=== PATIENT | male | born 1950 | race Caucasian/White ===

== ENCOUNTER 2023-05-26 13:48 | Inpatient (IN) | payer OTHER, SELFPAY ==
[2023-05-26] VITALS (7 sets, daily range): BP systolic 111–143; BP diastolic 85–105; BMI 32.6; BMI 31.6
--- NOTE | 2023-05-26 10:01 | ED.GENMED ---
History of Present Illness
<Katie Davis PA-C - Last Filed: 05/26/23 12:58>
General
Chief Complaint: Breathing Problem
Source: patient
Exam Limitations: none
Time Seen by Provider: 05/26/23 10:00
Nursing documentation reviewed up to this point in time: agreed with
Travel History
Have you had any contact with someone who has COVID-19?: No
Do you have any symptoms of coronavirus? Fever > 100 degrees, chills, cough, shortness of breath, sore throat, loss of taste or smell, muscle aches, or headache?: Yes
Symptoms:: cough
History of Present Illness
History of Present Illness:
73-year-old male with a past medical history of hypothyroidism, DVT, PEs, presenting to emergency department today with shortness of breath, coughing, and body aches for the past week. Patient reports that he was initially seen by urgent care where
he was diagnosed with pneumonia and was given Zithromax and Augmentin to go home with. Patient only took the Augmentin because he reports that he is allergic to azithromycin. He was given a Medrol Dosepak as well. Patient denies any history of
COPD but does report that he requires oxygen at night. Patient denies any history of sleep apnea. Patient states that since starting antibiotics and steroids, he is progressively gotten worse, become more short of breath, having more wheezing, and
more fatigue. Patient also has some mild left-sided chest pain. Patient denies fevers or chills at home, dizziness, lightheadedness.
Past History
<Katie Davis PA-C - Last Filed: 05/26/23 12:58>
Past History
ED Past Medical History: Hypothyroidism, Psychiatric (Depression, chronic anxiety) and Other (History of peripheral vascular disease, mitral valve prolapse, DVT to the right leg, ileus, abdominal pain, urinary tract infection, cellulitis)
ED Past Surgical History: Other (vascular surgery to the right leg for poor circulation, cervical spine fusion, exploratory surgery of the abdomen for pain and abdominal enlargement, Green field filter)
Patient has exhibited threatening behavior?: No
Social History
Tobacco: Non-smoker
Alcohol: None
Personal: Single
Living: other ([facility])
Employment: Not employed
Family History
Family History: Other (Noncontributory)
Review of Systems
<Katie Davis PA-C - Last Filed: 05/26/23 12:58>
Review of Systems
All Other Systems: ROS reviewed and negative except as documented in HPI and ROS
Phy Exam
<Katie Davis PA-C - Last Filed: 05/26/23 12:58>
Physical Exam
Physical Exam:
Vitals: Patient is afebrile
General: Patient appears ill, however no acute distress
HEENT: Head is normocephalic atraumatic. Ears�bilateral TMs are clear, no erythema. Eyes�no scleral injection, no exudates. EOMs intact, pupils equal and round, reactive to light. Nose�nares are patent bilaterally. Throat�no pharyngeal
erythema, no tonsillar hypertrophy. No cervical lymphadenopathy.
Skin: Warm and dry, no rashes or lesions
Cardiac: Patient is tachycardic, however regular rate and rhythm, no murmurs
Pulmonary: Patient is tachypneic, patient has diffuse wheezing on exam, audible without stethoscope.
Abdomen: No abdominal tenderness
Neuro: Patient is awake and alert, no focal neurologic deficit
Scores
<Katie Davis PA-C - Last Filed: 05/26/23 12:58>
Heart Failure Risk
Heart Failure Risk Score: Not Applicable
Course
<Katie Davis PA-C - Last Filed: 05/26/23 12:58>
Orders/Labs/Results
Orders:
Orders
05/26/23 09:54
Electrocardiogram (*1) Urgent
Reason for Study: Chest Pain
EKG- Treatment ONCE
05/26/23 10:21
COVID-19 Antigen Urgent
Source: Nasal Swab
Complete Blood Count/With Diff Urgent
Comprehensive Metabolic Panel Urgent
Lactic Acid Q4H
Comment: ON ICE, CANCEL 2ND ORDER IF FIRST LACTIC ACID LEVEL <2
Troponin I Urgent
INF RAPID [Influenza A+B Rapid Molecular] Urgent
JAMES Source: Nasal Swab
Specimen Description:
05/26/23 10:22
Blood Culture Q30M
JAMES Source: Blood/Venous
Specimen Description:
Comment: FROM 2 SEPARATE SITES
05/26/23 10:36
Azithromycin 500 mg/250 ml [Zithromax Infusion] 500 mg in 250 ml IV NOW
CefTRIAXone [Rocephin] 1,000 mg IV NOW STA
05/26/23 10:40
Ipratropium/Albuterol Sulfate [Duoneb] 3 ml INH R NOW ONE
05/26/23 10:49
Doxycycline [Vibramycin] 100 mg PO NOW STA
05/26/23 10:59
Blood Culture Q30M
JAMES Source: Blood/Venous
Specimen Description:
Comment: FROM 2 SEPARATE SITES
05/26/23 11:31
CR Chest - 2 Views Urgent
Comment:
Reason For Exam: shortness of bresth
Abnormal Lab Results
05/26/23
10:21
WBC 12.4 H 10^3/uL
(4.8-10.8)
MCH 31.8 H pg
(27.0-31.0)
RDW 14.7 H %
(11.5-14.5)
Abs Immat Gran (auto) 0.3 H 10^3/uL
(0-0.05)
Absolute Neuts (auto) 9.1 H 10^3/uL
(1.4-6.5)
Absolute Monos (auto) 1.5 H 10^3/uL
(0.1-0.6)
Immature Gran % 2.4 H %
(0-0.5)
Lymphocytes % 11.3 L %
(20.5-51.1)
Monocytes % 12.0 H %
(1.7-9.3)
BUN 25 H mg/dl
(9-20)
Glucose 108 H mg/dl
(70-99)
05/26/23 10:21
05/26/23 10:21
Vital Signs
Initial and Last Documented VS:
Initial Vital Signs
Pulse Resp BP Pulse Ox
108 22 143/105 95
05/26/23 09:55 05/26/23 09:55 05/26/23 09:55 05/26/23 09:55
Last Documented Vital Signs
Temp Pulse Resp BP Pulse Ox
98.3 F 105 20 111/87 91
05/26/23 09:58 05/26/23 12:01 05/26/23 12:01 05/26/23 12:01 05/26/23 12:00
<Adam Kaufman, DO - Last Filed: 05/26/23 12:24>
Orders/Labs/Results
Orders:
Orders
05/26/23 09:54
Electrocardiogram (*1) Urgent
Reason for Study: Chest Pain
EKG- Treatment ONCE
05/26/23 10:21
COVID-19 Antigen Urgent
Source: Nasal Swab
Complete Blood Count/With Diff Urgent
Comprehensive Metabolic Panel Urgent
Lactic Acid Q4H
Comment: ON ICE, CANCEL 2ND ORDER IF FIRST LACTIC ACID LEVEL <2
Troponin I Urgent
INF RAPID [Influenza A+B Rapid Molecular] Urgent
JAMES Source: Nasal Swab
Specimen Description:
05/26/23 10:22
Blood Culture Q30M
JAMES Source: Blood/Venous
Specimen Description:
Comment: FROM 2 SEPARATE SITES
05/26/23 10:36
Azithromycin 500 mg/250 ml [Zithromax Infusion] 500 mg in 250 ml IV NOW
CefTRIAXone [Rocephin] 1,000 mg IV NOW STA
05/26/23 10:40
Ipratropium/Albuterol Sulfate [Duoneb] 3 ml INH R NOW ONE
05/26/23 10:49
Doxycycline [Vibramycin] 100 mg PO NOW STA
05/26/23 10:59
Blood Culture Q30M
JAMES Source: Blood/Venous
Specimen Description:
Comment: FROM 2 SEPARATE SITES
05/26/23 11:31
CR Chest - 2 Views Urgent
Comment:
Reason For Exam: shortness of bresth
Abnormal Lab Results
05/26/23
10:21
WBC 12.4 H 10^3/uL
(4.8-10.8)
MCH 31.8 H pg
(27.0-31.0)
RDW 14.7 H %
(11.5-14.5)
Abs Immat Gran (auto) 0.3 H 10^3/uL
(0-0.05)
Absolute Neuts (auto) 9.1 H 10^3/uL
(1.4-6.5)
Absolute Monos (auto) 1.5 H 10^3/uL
(0.1-0.6)
Immature Gran % 2.4 H %
(0-0.5)
Lymphocytes % 11.3 L %
(20.5-51.1)
Monocytes % 12.0 H %
(1.7-9.3)
BUN 25 H mg/dl
(9-20)
Glucose 108 H mg/dl
(70-99)
05/26/23 10:21
05/26/23 10:21
Vital Signs
Initial and Last Documented VS:
Initial Vital Signs
Pulse Resp BP Pulse Ox
108 22 143/105 95
05/26/23 09:55 05/26/23 09:55 05/26/23 09:55 05/26/23 09:55
Last Documented Vital Signs
Temp Pulse Resp BP Pulse Ox
98.3 F 105 20 111/87 91
05/26/23 09:58 05/26/23 12:01 05/26/23 12:01 05/26/23 12:01 05/26/23 12:00
<Katie Davis PA-C - Last Filed: 05/26/23 12:58>
MDM/Problems Addressed
Differential Diagnosis Includes:
Differentials include knee acquired pneumonia, COPD, influenza, COVID-19
MDM/Problems Addressed:
Shortness of breath, pneumonia
Chronic conditions affecting care: Psychiatric illness (Depression, anxiety) and Other (History of DVT, PE)
<Katie Davis PA-C - Last Filed: 05/26/23 12:58>
*Pulse Oximetry
Patient hypoxic: no
*EKG
Interpreted by ED Provider?: Yes
EKG Intrepretation Date: 05/26/23
Interpretation: abnormal
Comparison EKG: changes noted (PVCs now present)
Heart Rate: 104
Rate: tachycardiac
Rhythm: sinus and PVC's
[place]: normal axis
Interval: normal interval
QRS Pattern: normal QRS
Ischemia: no ischemia
*Fiber Worker Interpretation
Rate: tachycardiac
Interpretation: normal
Heart Rate: 101
Rhythm: sinus and PVC's
*Critical Care Note
Total Time (30-74mins, 75-104mins- exclusive of procedures): Not Applicable
Data Reviewed
Review of Other/Old Records Reveals: Records (Reviewed ER physician documentation from 01/19/2020)
Source: patient
<Katie Davis PA-C - Last Filed: 05/26/23 12:58>
Patient Management
Escalation/DeEscalation of care consider admission/obs:
73-year-old male with a past medical history of hypothyroidism, DVT, PE through numerous emergency room today with shortness of breath and pneumonia failing outpatient therapy patient. Patient was originally seen by urgent care around a week ago,
diagnosed with pneumonia, treated with Augmentin and steroids. Patient has been progressively getting worse. On exam, he has tachypnea and diffuse wheezing. We will give Rocephin and doxycycline, plan to admit for inpatient therapy.
ED Attending Note
<Katie Davis PA-C - Last Filed: 05/26/23 12:58>
-
Portions of this chart may have been created with voice recognition software.� Occasional wrong word or��sound alike� substitutions may have occurred due to the inherent limitations of voice recognition software.
<Adam Kaufman DO - Last Filed: 05/26/23 12:24>
ED Attending Note
Patient seen and examined by attending physician: Yes
I performed a history and physical exam of patient and discussed management with resident, I reviewed resident's note and agree with documented findings and plan of care.: Yes
ED Attending Note:
I have reviewed and agree with history and treatment plan by Katie Davis.
My exam
Physical Exam
General: Afebrile
Neck: supple. no meningeal signs. normal posterior pharynx
Heart: s1/s2 regular rate and rhythm, no murmur. equal radial
pulses.
HEENT: Pupils equal round reactive to light, EOMI
Lungs: Rhonchi left lower lobe
Abdomen: normal bowel sounds. not tender. no CVAT
Neuro: alert and oriented. no focal neurological deficits cranial nerves II through XII intact
Skin: no rash
Psychiatric: well kept. interactive and cooperative
Extremities: no edema. no calf tenderness. negative homans. good distal pulses
33-year-old male with pneumonia failing outpatient treatment. Will admit to hospitalist, Rocephin and doxycycline.
Discharge Plan
Departure
Patient Disposition: Admit
Date of Disposition: 05/26/23
Time of Disposition: 12:38
Admit to: Med/Surg
Presentation/result/management discussed w/ accepting MD/DO: Hospitalist
Patient with high blood pressure during this ER visit?: Yes
Condition: Fair
Discharge Problem:
Community acquired pneumonia
Prescriptions:
No Action
levothyroxine 50 MCG tablet
75 mcg PO DAILY
polyethylene glycol 3350 17 GRAMS powder in packet
17 grams PO BID Qty: 0 0RF
cyanocobalamin (vitamin B-12) 1,000 MCG tablet
1,000 mcg PO DAILY
melatonin 3 MG tablet
10 mg PO HS
tamsulosin 0.4 MG capsule
0.8 mg PO DAILY
cholecalciferol (vitamin D3) 1,000 UNITS tablet
1,000 units PO DAILY
gabapentin 100 MG capsule
100 mg PO HS 30 Days Qty: 30 0RF
Fluvoxamine Maleate
100 mg PO HS
Fluvoxamine Maleate
50 mg PO HS
Xarelto:
20 mg PO DAILY
gabapentin 400 MG capsule
400 mg PO TID
aripiprazole 2 MG tablet
5 mg PO DAILY
clonazepam 0.5 MG tablet
0.5 mg PO Q6HPRN PRN (Reason: anxiety) Qty: 10 0RF
atorvastatin 40 mg Tablet
40 mg PO HS
pantoprazole 40 mg Tablet,Delayed Release (Dr/Ec)
40 mg PO DAILY
carbidopa-levodopa 25-100 mg Tablet
1 tab PO TID
quetiapine [Seroquel] 300 MG tablet
600 mg PO HS
clonazepam 1 MG tablet
1 mg PO DAILY
Referrals:
Tenthoff,Vangie Monterroso MD [Family Provider] -
Interventions
Interventions:
*Risk Screen - Suicide Last Done: 05/26/23 09:55
*General Assessment Last Done: 05/26/23 09:55
*Neglect/Abuse Screening Last Done: 05/26/23 09:55
*ED COVID-19 Vaccine History Last Done: 05/26/23 11:34
ED- Cardiac Assessment Last Done: 05/26/23 11:31
ED- Pulmonary Assessment Last Done: 05/26/23 11:32
[2023-05-26 10:36] LABS: % Basophils 0.6 % (0-2); % Eosinophils 0.6 % (0-6); % Immature Granulocytes 2.4 % (0-0.5); % Lymphocytes 11.3 % (20.5-51.1); % Neutrophils 73.1 % (42.2-75.2); Absolute Basophils 0.1 10^3/uL (0-0.2); Absolute Eosinophils 0.1 10^3/uL (0-0.7); Absolute Immature Granulocytes 0.3 10^3/uL (0-0.05); Absolute Lymphocytes 1.4 10^3/uL (1.2-3.4); Absolute Monocytes 1.5 10^3/uL (0.1-0.6); Absolute Neutrophils 9.1 10^3/uL (1.4-6.5); Hemoglobin 15.1 g/dL (13.0-18.0); Mean Corpuscular Hgb 31.8 pg (27.0-31.0); Mean Corpuscular Volume 88.4 fL (80.0-94.0); Mean Platelet Volume 8.5 fL (7.4-10.4); Nucleated Red Blood Cells % 0 % (-); Platelet Count 238 10^3/uL (130-400); Red Blood Cell Count 4.75 10^6/uL (4.70-6.10); Red Cell Dist. Width 14.7 % (11.5-14.5); White Blood Cell Count 12.4 10^3/uL (4.8-10.8)
[2023-05-26 10:46] LABS: ALT (SGPT) 34 U/L (0-50); AST (SGOT) 36 U/L (17-59); Albumin 3.9 g/dl (3.5-5.0); Alkaline Phosphatase 84 U/L (38-126); Blood Urea Nitrogen 25 mg/dl (9-20); Calcium 9.4 mg/dl (8.4-10.2); Carbon Dioxide 27 mmol/L (22-30); Chloride 105 mmol/L (98-107); Estimated Creatinine Clearance 68 ml/min; Glucose 108 mg/dl (70-99); Sodium 137 mmol/L (135-145); Total Bilirubin 0.8 mg/dl (0.2-1.3); Total Protein 6.4 g/dl (6.3-8.2); eGFR > 60.00
[2023-05-26 10:47] LABS: Lactic Acid 1.3 mmol/L (0.7-2.0)
[2023-05-26 10:58] LABS: Troponin I < 0.012 ng/ml
[2023-05-26] MEDS: DUONEB 3 ML INH ×3 (10:59→18:40)
[2023-05-26] MEDS: ROCEPHIN 1000 MG IV (11:02)
[2023-05-26 11:06] LABS: COVID-19 Antigen Negative (Negative)
[2023-05-26] MEDS: VIBRAMYCIN 100 MG PO ×2 (11:07→20:33)
--- NOTE | 2023-05-26 13:35 | HPS.HSE ---
Addendum entered and electronically signed by Manish Small MD 05/26/23 15:38:
Seen and examined by me independently in collaboration with the nurse practitioner Sabrina.
Past medical history/social history/medication/allergies reviewed.
Lab data and imaging data reviewed.
Patient presents with respiratory symptoms which are ongoing despite being on Augmentin for possible left lung pneumonia. He was also given oral prednisone.
Patient currently afebrile but he has cough with green phlegm and he is got active bronco spasm. Not hypoxic. No acute respiratory distress.
Chest x-ray suggests a left lung pneumonia.
Treat as community-acquired pneumonia failed outpatient antibiotics-start on ceftriaxone and doxycycline.
He also has probably acute bronchitis associated with that-start on steroids and see the response.
Original Note:
Family Physician
-
Family Physician: Vangie Patricia MD
Chief Complaint
-
Cough and Shortness of Breath
History of Present Illness
Pt is a 73yo M w/ a PMH of HLD, DVT/PE, BPH w/ chronic urinary retention, Hypothyroidism, Nocturnal Hypoxia, Bipolar Disorder, and Parkinson's Disease is presenting to the ED c/o SOB despite six days of Augmentin and oral Prednisone. He states his
symptoms first began 7 days ago and have not improved. He states he was seen at urgent care six days ago and was diagnosed with pneumonia and was prescribed a 10 day course of Augmentin and oral Prednisone. He states at the onset of his symptoms he
presented with a dry cough, fever, shortness of breath and muscle aches. He states the fever and muscle aches have since resolved but his cough has progressed and is now productive. He also admits to chest tightness, malaise, fatigue and poor
appetite. He denies fevers, sweats or chills. He denies chest pain or palpitations. He denies a past medical history of asthma, COPD or GUERO.
Medical History
Past Medical History
Past Medical History: Reports Other
Additional Past Medical History:
Hyperlipidemia
Nocturnal Hypoxia
Bipolar Disorder
Parkinson's Disease
Hypothyroidism
DVT/PE
Past Surgical History: Reports Other
Additional Past Surgical History:
Cervical Spine Fusion
Exploratory Abdominal Surgery
Social History
Tobacco: Non-smoker
Alcohol: None
Drug: None
Family History
Family History: Not pertinent
Allergies / Home Medications
Allergies reflects when Allergies were last updated in [employer].
Home Medications with original date entered in [employer]
Allergy/Medication List:
Allergies
Allergy/AdvReac Type Severity Reaction Status Date / Time
azithromycin Allergy Rash Verified 05/26/23 09:52
[From Zithromax Z-Sp]
erythromycin base Allergy Unknown Verified 05/26/23 09:52
[Erythromycin Base]
lamotrigine [From Lamictal] Allergy Rash Verified 05/26/23 09:52
propranolol Allergy Rash Verified 05/26/23 09:52
venlafaxine [From Effexor] Allergy Rash Verified 05/26/23 09:52
warfarin sodium Allergy Rash Verified 05/26/23 09:52
[From Coumadin]
ziprasidone HCl [From Geodon] Allergy HEADACHES, Verified 05/26/23 09:52
'FELT
WEIRD'
ziprasidone mesylate Allergy HEADACHES, Verified 05/26/23 09:52
[From Geodon] 'FELT
WEIRD'
Home Medications
levothyroxine 50 mcg tablet 75 mcg PO DAILY 12/17/12
polyethylene glycol 3350 17 gram oral powder packet 17 grams PO BID ##0 12/31/12
cholecalciferol (vitamin D3) 25 mcg (1,000 unit) tablet 1,000 units PO DAILY 03/09/18
cyanocobalamin (vitamin B-12) 1,000 mcg tablet 1,000 mcg PO DAILY 03/09/18
melatonin 3 mg tablet 10 mg PO HS 03/09/18
tamsulosin 0.4 mg capsule 0.8 mg PO DAILY 03/09/18
gabapentin 100 mg capsule 100 mg PO HS 30 days #30 caps 03/12/18
Fluvoxamine Maleate 50 mg PO HS 01/19/20
Fluvoxamine Maleate 100 mg PO HS 01/19/20
Xarelto: 20 mg PO DAILY 01/19/20
aripiprazole 2 mg tablet 5 mg PO DAILY 01/19/20
gabapentin 400 mg capsule 400 mg PO TID 01/19/20
clonazepam 0.5 mg tablet 0.5 mg PO Q6HPRN PRN anxiety #10 tabs 01/20/20
atorvastatin 40 mg tablet 40 mg PO HS 05/26/23
carbidopa 25 mg-levodopa 100 mg tablet 1 tab PO TID 05/26/23
clonazepam 1 mg tablet 1 mg PO DAILY 05/26/23
pantoprazole 40 mg tablet,delayed release 40 mg PO DAILY 05/26/23
quetiapine 300 mg tablet (Seroquel) 600 mg PO HS 05/26/23
Review of Systems
-
A 12 point ROS was completed and negative except as noted: Yes
Constitutional: Reports Fatigue; Denies Fever or Chills
Respiratory: Reports See HPI
Cardiac: Denies Chest Pain or Palpitations
Abdomen/GI: Reports Diarrhea (Improved with probiotics) and Anorexia
Physical Exam
Vital Signs
Vital Signs
Temp Pulse Resp BP Pulse Ox
98.3 F 104 20 114/85 93
05/26/23 09:58 05/26/23 13:30 05/26/23 13:30 05/26/23 13:08 05/26/23 12:15
Physical Exam
General: Comfortable and Conversant
HEENT: Anicteric and Moist mucous membranes
Respiratory: Wheezes, Rhonchi and Non Labored Respirations
Cardiac: S1/S2, Regular Rhythm and Tachycardia (Slightly)
GI: Soft and Non Tender
Rectal: Deferred by Provider
Musculoskeletal: No Clubbing, No Cyanosis and Edema, Right Lower Extremity (Trace, chronic per patient)
Skin: Warm and Dry
Neuro: Awake, Alert, Oriented and Nonfocal/grossly intact
Psych: Calm
Laboratory Results
-
05/26/23 10:21
05/26/23 10:21
Laboratory Results
Lactic Acid Cancelled 05/26/23 14:00
Total Bilirubin 0.8 mg/dl (0.2-1.3) 05/26/23 10:21
AST 36 U/L (17-59) 05/26/23 10:21
ALT 34 U/L (0-50) 05/26/23 10:21
Alkaline Phosphatase 84 U/L (38-126) 05/26/23 10:21
Troponin I < 0.012 ng/ml 05/26/23 10:21
Data Reviewed
-
Diagnostic Radiology: Report Reviewed by me
Lab Data: Labs Reviewed by me
Impression/Plan
-
Acute Bronchitis in setting of Community Acquired Pneumonia
-Continue ceftriaxone and doxycycline
-Continue Decadron 4mg q8h
-Continue Mucinex
-Encourage use of incentive spirometer and acapella device
Chronic Nocturnal Hypoxia
-Continue supplemental oxygen at night
Hyperlipidemia
-Continue Atorvastatin
Bipolar Disorder
-Continue Abilify, Clonazepam, Fluvoxamine and Seroquel
Parkinson's Disease
-Continue carbidopa/levodopa
Hypothyroidism
-Continue levothyroxine
GERD
-Continue Protonix
BPH/Chronic Urinary Retention
-Continue tamsulosin
-Patient straight caths twice a day
DVT/PE s/p IVC Filter
-Continue Xarelto
Code Status: Full Code
[2023-05-26] MEDS: DECADRON 4 MG IV ×2 (15:53→21:09)
[2023-05-26] MEDS: SINEMET 25-100 1 TABLET PO ×2 (15:54→21:23)
[2023-05-26] MEDS: NEURONTIN 400 MG PO (15:54)
[2023-05-26] MEDS: TYLENOL 650 MG PO (16:29)
[2023-05-26] MEDS: XARELTO 20 MG PO (17:29)
[2023-05-26] MEDS: ABILIFY 5 MG PO (17:29)
[2023-05-26] MEDS: FLORASTOR 250 MG PO (20:33)
[2023-05-26] MEDS: MUCINEX 600 MG PO (20:33)
[2023-05-26] MEDS: KLONOPIN 0.5 MG PO (21:10)
[2023-05-26] MEDS: MELATONIN 10 MG PO (21:11)
[2023-05-26] MEDS: SEROQUEL 300 MG PO (21:12)
[2023-05-26] MEDS: LUVOX 50 MG PO (21:12)
[2023-05-26] MEDS: SEROQUEL 50 MG PO (21:13)
[2023-05-26] MEDS: LIPITOR 40 MG PO (21:14)
[2023-05-26] MEDS: NEURONTIN 100 MG PO (21:14)
[2023-05-27] MEDS: DECADRON 4 MG IV ×3 (05:02→21:24)
[2023-05-27] MEDS: SYNTHROID 75 MCG PO (05:02)
[2023-05-27 07:21] LABS: Hematocrit 43.2 % (39.0-52.0); Hemoglobin 14.7 g/dL (13.0-18.0); Mean Corpuscular Hgb 31.2 pg (27.0-31.0); Mean Corpuscular Volume 91.7 fL (80.0-94.0); Mean Platelet Volume 9.1 fL (7.4-10.4); Platelet Count 247 10^3/uL (130-400); Red Blood Cell Count 4.71 10^6/uL (4.70-6.10); Red Cell Dist. Width 14.6 % (11.5-14.5); White Blood Cell Count 14.4 10^3/uL (4.8-10.8)
[2023-05-27 07:30] VITALS: BP 137/93
[2023-05-27] MEDS: DUONEB 3 ML INH ×4 (07:32→19:30)
[2023-05-27 07:43] LABS: Blood Urea Nitrogen 28 mg/dl (9-20); Calcium 9.2 mg/dl (8.4-10.2); Carbon Dioxide 30 mmol/L (22-30); Chloride 104 mmol/L (98-107); Estimated Creatinine Clearance 67 ml/min; Glucose 136 mg/dl (70-99); Potassium 4.7 mmol/L (3.5-5.1); Sodium 137 mmol/L (135-145); eGFR > 60.00
[2023-05-27] MEDS: VIBRAMYCIN 100 MG PO ×2 (07:53→20:06)
[2023-05-27] MEDS: MUCINEX 600 MG PO ×2 (07:53→20:06)
[2023-05-27] MEDS: LUVOX 100 MG PO (07:53)
[2023-05-27] MEDS: PROTONIX 40 MG PO (07:53)
[2023-05-27] MEDS: FLORASTOR 250 MG PO ×2 (07:54→20:06)
[2023-05-27] MEDS: SINEMET 25-100 1 TABLET PO ×3 (07:54→21:27)
[2023-05-27] MEDS: NEURONTIN 400 MG PO ×3 (07:54→17:25)
[2023-05-27] MEDS: VITAMIN B-12 1000 MCG PO (07:54)
[2023-05-27] MEDS: VITAMIN D3 (cholecalciferol) 25 MCG PO (07:54)
[2023-05-27] MEDS: FLOMAX 0.800000000000000044 MG PO (07:54)
[2023-05-27] MEDS: ROCEPHIN 1000 MG IV (09:26)
[2023-05-27] MEDS: STERILE WATER FOR INJECTION 10 ML IV (09:26)
--- NOTE | 2023-05-27 13:35 | W.PN.HOSP.TC ---
Today's Communication/Plan
-
cont current management
PT/OT
Assessment / Plan
Assessment / Plan
pt is a 73 year old male
Acute Bronchitis in setting of Community Acquired Pneumonia-Continue ceftriaxone and doxycycline-Continue Decadron 4mg o8p-Pgiayxmc Mucinex-Encourage use of incentive spirometer and acapella device
Chronic Nocturnal Hypoxia-Continue supplemental oxygen at night
Hyperlipidemia-Continue Atorvastatin
Bipolar Disorder-Continue Abilify, Clonazepam, Fluvoxamine and Seroquel (takes all 550mg at night at once)
Parkinson's Disease-Continue carbidopa/levodopa
Hypothyroidism-Continue levothyroxine
GERD-Continue Protonix
BPH/Chronic Urinary Retention-Continue tamsulosin-Patient straight caths twice a day
DVT/PE s/p IVC Filter-Continue Xarelto
Code Status: Full Code
Anticipated Discharge: 24 - 48 hours
Subjective/Interval History
-
Date of Service: May 27, 2023
pt feeling a bit better
Objective Data
-
Labs:
Laboratory Results
05/27/23
06:53
WBC 14.4 H
Hgb 14.7
Hct 43.2
Plt Count 247
Sodium 137
Potassium 4.7
Chloride 104
Carbon Dioxide 30
BUN 28 H
Creatinine 1.2
Glucose 136 H
Calcium 9.2
Vital Signs:
max temp for 24 hours
05/26/23
23:15
Temp 98.0 F
Vital Signs
Temp Pulse Resp BP Pulse Ox
97.5 F 86 16 137/93 94
05/27/23 07:30 05/27/23 07:42 05/27/23 07:42 05/27/23 07:30 05/27/23 08:10
Review of Systems
-
All other systems: Reviewed and negative
Physical Exam
-
General: Well Developed, Well Nourished and No Apparent Distress
HEENT: Normocephalic and Atraumatic
Respiratory: Wheezes and Rhonchi
Cardiac: Regular Rhythm and S1/S2; Negative Murmur
GI: Soft, Nontender, Nondistended and Normal Bowel Sounds
Musculoskeletal: No Clubbing, No Cyanosis and No Edema
Neuro: Awake
Psych: Calm
--- NOTE | 2023-05-27 14:45 | CM ---
Patient seen at bedside with physician. Patient confirmed that he was still living with his son in an apartment with an elevator. Patient states he is independent with ADL's and IADL's. Patient has had VN in the past but does not remember the name
of the agency. Patient PCP is Dr. Patricia and
he does not have any DME at home. CM will continue to follow for discharge planning needs.
Plan; home with VN vs home with no needs. Watch for home O2 needs.
[2023-05-27 15:38] VITALS: BP 127/78
[2023-05-27] MEDS: ABILIFY 5 MG PO (17:25)
[2023-05-27] MEDS: XARELTO 20 MG PO (17:25)
[2023-05-27] MEDS: MIRALAX 17 GRAMS PO (17:26)
[2023-05-27] MEDS: NEURONTIN 100 MG PO (21:25)
[2023-05-27] MEDS: LIPITOR 40 MG PO (21:25)
[2023-05-27] MEDS: KLONOPIN 0.5 MG PO (21:25)
[2023-05-27] MEDS: LUVOX 50 MG PO (21:26)
[2023-05-27] MEDS: MELATONIN 10 MG PO (21:28)
[2023-05-27] MEDS: SEROQUEL 50 MG PO (21:32)
[2023-05-27] MEDS: SEROQUEL 500 MG PO (21:32)
[2023-05-27 23:47] VITALS: BP 117/74
[2023-05-28] MEDS: SYNTHROID 75 MCG PO (06:00)
[2023-05-28] MEDS: DECADRON 4 MG IV ×3 (06:00→21:59)
[2023-05-28 06:24] LABS: Hematocrit 40.2 % (39.0-52.0); Hemoglobin 13.9 g/dL (13.0-18.0); Mean Corp Hgb Conc. 34.6 g/dL (33.0-37.0); Mean Corpuscular Hgb 30.8 pg (27.0-31.0); Mean Corpuscular Volume 89.1 fL (80.0-94.0); Mean Platelet Volume 9.2 fL (7.4-10.4); Platelet Count 236 10^3/uL (130-400); Red Blood Cell Count 4.51 10^6/uL (4.70-6.10); White Blood Cell Count 20.3 10^3/uL (4.8-10.8)
[2023-05-28 06:39] LABS: Blood Urea Nitrogen 38 mg/dl (9-20); Calcium 9.2 mg/dl (8.4-10.2); Carbon Dioxide 24 mmol/L (22-30); Chloride 102 mmol/L (98-107); Estimated Creatinine Clearance 73 ml/min; Glucose 138 mg/dl (70-99); Magnesium 1.8 mg/dl (1.6-2.3); Potassium 4.3 mmol/L (3.5-5.1); Sodium 137 mmol/L (135-145); eGFR > 60.00
--- NOTE | 2023-05-28 06:40 | PTCARENOTE ---
Patient reports that he voided once during the night. Patient did not want staff to bladder scan him. Offered straight cath, but patient refused and stated that he did not feel the need to do this.
[2023-05-28] MEDS: DUONEB 3 ML INH ×4 (07:18→19:38)
[2023-05-28 07:55] VITALS: BP 130/90
--- NOTE | 2023-05-28 07:56 | PN.CDI ---
CDI
- -
CDI:
Physician Documentation Request
Admit Date: 05/26/23 13:48
Dear Doctor Marcel,
Patient admitted with acute bronchitis and community acquired pneumonia.
On admission, WBC 12.4 and HR> 90.
Patient received IV Rocephin and po Vibramycin.
Please clarify which of the following most accurately describes the status of the patient's infection:
Sepsis, POA
Acute bronchitis and pneumonia only
Other
Sepsis
- Systemic manifestations of infection, with 2 or more SIRS criteria which include:
- Fever >100.4 degrees F or hypothermia < 96.8 degrees F
- Leukocytosis - WBC > 12,000 or leukopenia - WBC < 4,000 or > 10% bands
- Tachycardia > 90 beats per minute
- Tachypnea - RR > 20 breaths per minute or PaCO2 , 32mmHg
Source: Merck Manual 2013
- Indicate the known or suspected organism
- Indicate the known or suspected underlying infection, such as acute bronchitis and pneumonia.
Localized Infection Only, Without Systemic Illness
- indicate the site/source, such as acute bronchitis and pneumonia.
Other
Unable to Determine
Use of terms such as suspected, likely, concern for, or probable (associated with a specific diagnosis that is being evaluated, monitored, or treated as if it exists) are acceptable and can be coded in the inpatient setting, when documented at the
time of discharge.
Thank you,
Rita Amend
CDI Specialist
Please use your independent medical judgment in providing your response.
[2023-05-28] MEDS: SINEMET 25-100 1 TABLET PO ×3 (08:21→22:00)
[2023-05-28] MEDS: FLOMAX 0.800000000000000044 MG PO (08:21)
[2023-05-28] MEDS: NEURONTIN 400 MG PO ×3 (08:21→17:13)
[2023-05-28] MEDS: VITAMIN D3 (cholecalciferol) 25 MCG PO (08:21)
[2023-05-28] MEDS: MIRALAX 17 GRAMS PO ×2 (08:21→20:17)
[2023-05-28] MEDS: VITAMIN B-12 1000 MCG PO (08:21)
[2023-05-28] MEDS: MUCINEX 600 MG PO ×2 (08:21→20:17)
[2023-05-28] MEDS: VIBRAMYCIN 100 MG PO ×2 (08:22→20:17)
[2023-05-28] MEDS: PROTONIX 40 MG PO (08:22)
[2023-05-28] MEDS: FLORASTOR 250 MG PO ×2 (08:22→20:16)
[2023-05-28] MEDS: LUVOX 100 MG PO (08:22)
[2023-05-28] MEDS: STERILE WATER FOR INJECTION 10 ML IV (11:23)
[2023-05-28] MEDS: ROCEPHIN 1000 MG IV (11:23)
--- NOTE | 2023-05-28 11:37 | PTCARENOTE ---
Sputum + for MRSA. Provider made aware. Contact precautions in place. Private room pending.
--- NOTE | 2023-05-28 14:45 | W.PN.HOSP.TC ---
Today's Communication/Plan
-
no changes today
add bowel regimen
Assessment / Plan
Assessment / Plan
pt is a 73 year old male
Acute Bronchitis in setting of Community Acquired Pneumonia--Continue ceftriaxone and doxycycline--Continue Decadron 4mg p0v-Zudpljzz Mucinex--Encourage use of incentive spirometer and acapella device
Chronic Nocturnal Hypoxia--Continue supplemental oxygen at night
constipation -- miralax and stool softener
Hyperlipidemia-Continue Atorvastatin
Bipolar Disorder-Continue Abilify, Clonazepam, Fluvoxamine and Seroquel (takes all 550mg at night at once)
Parkinson's Disease-Continue carbidopa/levodopa
Hypothyroidism-Continue levothyroxine
GERD-Continue Protonix
BPH/Chronic Urinary Retention-Continue tamsulosin-Patient straight caths twice a day
DVT/PE s/p IVC Filter-Continue Xarelto
Code Status: Full Code
Anticipated Discharge: 24 - 48 hours
Subjective/Interval History
-
Date of Service: May 28, 2023
pt still wheezing and c/o constipation
Objective Data
-
Labs:
Laboratory Results
05/28/23
05:04
WBC 20.3 H
Hgb 13.9
Hct 40.2
Plt Count 236
Sodium 137
Potassium 4.3
Chloride 102
Carbon Dioxide 24
BUN 38 H
Creatinine 1.1
Glucose 138 H
Calcium 9.2
Vital Signs:
max temp for 24 hours
05/27/23
15:38
Temp 97.9 F
Vital Signs
Temp Pulse Resp BP Pulse Ox
97.5 F 91 16 130/90 96
05/28/23 07:55 05/28/23 11:10 05/28/23 11:10 05/28/23 07:55 05/28/23 11:10
I&O
05/27/23 05/28/23 05/29/23
06:59 06:59 06:59
Intake Total 1979
Balance 1979
Review of Systems
-
All other systems: Reviewed and negative
Respiratory: Reports Trouble Breathing and Wheezing
Physical Exam
-
General: Well Developed, Well Nourished and No Apparent Distress
HEENT: Normocephalic and Atraumatic; Negative Oxygen
Respiratory: Wheezes
Cardiac: Regular Rhythm and S1/S2; Negative Murmur
GI: Soft, Nontender, Nondistended and Normal Bowel Sounds
Musculoskeletal: No Clubbing, No Cyanosis and No Edema
Neuro: Awake
Psych: Calm
[2023-05-28 15:55] VITALS: BP 135/88
[2023-05-28] MEDS: XARELTO 20 MG PO (17:13)
[2023-05-28] MEDS: ABILIFY 5 MG PO (17:13)
[2023-05-28] MEDS: COLACE 100 MG PO (20:17)
[2023-05-28] MEDS: LIPITOR 40 MG PO (22:00)
[2023-05-28] MEDS: MELATONIN 10 MG PO (22:00)
[2023-05-28] MEDS: LUVOX 50 MG PO (22:00)
[2023-05-28] MEDS: KLONOPIN 0.5 MG PO (22:00)
[2023-05-28] MEDS: NEURONTIN 100 MG PO (22:00)
[2023-05-28] MEDS: SEROQUEL 50 MG PO (22:02)
[2023-05-28] MEDS: SEROQUEL 500 MG PO (22:02)
[2023-05-28 23:24] VITALS: BP 105/67
[2023-05-29] MEDS: SYNTHROID 75 MCG PO (05:56)
[2023-05-29] MEDS: DECADRON 4 MG IV ×2 (05:56→13:06)
[2023-05-29 07:45] LABS: Hematocrit 40.9 % (39.0-52.0); Hemoglobin 14.1 g/dL (13.0-18.0); Mean Corp Hgb Conc. 34.5 g/dL (33.0-37.0); Mean Corpuscular Hgb 31.5 pg (27.0-31.0); Mean Corpuscular Volume 91.5 fL (80.0-94.0); Mean Platelet Volume 9.5 fL (7.4-10.4); Platelet Count 238 10^3/uL (130-400); Red Blood Cell Count 4.47 10^6/uL (4.70-6.10); Red Cell Dist. Width 15.2 % (11.5-14.5); White Blood Cell Count 19.4 10^3/uL (4.8-10.8)
[2023-05-29 07:58] VITALS: BP 119/86
[2023-05-29] MEDS: DUONEB 3 ML INH ×4 (08:10→20:00)
[2023-05-29 08:19] LABS: Blood Urea Nitrogen 39 mg/dl (9-20); Calcium 9.1 mg/dl (8.4-10.2); Carbon Dioxide 24 mmol/L (22-30); Chloride 102 mmol/L (98-107); Estimated Creatinine Clearance 73 ml/min; Glucose 132 mg/dl (70-99); Magnesium 1.8 mg/dl (1.6-2.3); Potassium 4.6 mmol/L (3.5-5.1); Sodium 136 mmol/L (135-145); eGFR > 60.00
[2023-05-29] MEDS: FLORASTOR 250 MG PO ×2 (09:26→21:20)
[2023-05-29] MEDS: FLOMAX 0.800000000000000044 MG PO (09:26)
[2023-05-29] MEDS: VIBRAMYCIN 100 MG PO ×2 (09:26→21:20)
[2023-05-29] MEDS: SINEMET 25-100 1 TABLET PO ×3 (09:26→21:24)
[2023-05-29] MEDS: COLACE 100 MG PO ×2 (09:26→21:21)
[2023-05-29] MEDS: LUVOX PO ×2 (09:26)
[2023-05-29] MEDS: MIRALAX 17 GRAMS PO ×2 (09:26→21:21)
[2023-05-29] MEDS: PROTONIX 40 MG PO (09:26)
[2023-05-29] MEDS: MUCINEX 600 MG PO ×2 (09:27→21:21)
[2023-05-29] MEDS: VITAMIN B-12 1000 MCG PO (09:27)
[2023-05-29] MEDS: NEURONTIN 400 MG PO ×3 (09:27→17:09)
[2023-05-29] MEDS: VITAMIN D3 (cholecalciferol) 25 MCG PO (09:27)
[2023-05-29] MEDS: STERILE WATER FOR INJECTION 10 ML IV (09:28)
[2023-05-29] MEDS: LUVOX 100 MG PO (09:28)
[2023-05-29] MEDS: ROCEPHIN 1000 MG IV (09:30)
--- NOTE | 2023-05-29 14:50 | W.PN.HOSP.TC ---
Today's Communication/Plan
-
change to po prednisone
add pulmicort nebs
Assessment / Plan
Assessment / Plan
pt is a 73 year old male
sepsis (POA) due to Acute Bronchitis in setting of Community Acquired Pneumonia--Continue ceftriaxone and doxycycline--Change Decadron 4mg q8h to prednisone, add pulmicort nebs--Continue Mucinex--Encourage use of incentive spirometer and acapella
device
Chronic Nocturnal Hypoxia--Continue supplemental oxygen at night
constipation -- miralax and stool softener
Hyperlipidemia-Continue Atorvastatin
Bipolar Disorder-Continue Abilify, Clonazepam, Fluvoxamine and Seroquel (takes all 550mg at night at once)
Parkinson's Disease-Continue carbidopa/levodopa
Hypothyroidism-Continue levothyroxine
GERD-Continue Protonix
BPH/Chronic Urinary Retention-Continue tamsulosin-Patient straight caths twice a day
DVT/PE s/p IVC Filter-Continue Xarelto
Code Status: Full Code
Anticipated Discharge: Within 24 hours
Subjective/Interval History
-
Date of Service: May 29, 2023
pt still wheezing, thinks needs another day
Objective Data
-
Labs:
Laboratory Results
05/29/23
06:39
WBC 19.4 H
Hgb 14.1
Hct 40.9
Plt Count 238
Sodium 136
Potassium 4.6
Chloride 102
Carbon Dioxide 24
BUN 39 H
Creatinine 1.1
Glucose 132 H
Calcium 9.1
Vital Signs:
max temp for 24 hours
05/28/23
15:55
Temp 98.1 F
Vital Signs
Temp Pulse Resp BP Pulse Ox
97.8 F 103 16 119/86 95
05/29/23 07:58 05/29/23 11:37 05/29/23 11:37 05/29/23 07:58 05/29/23 11:37
I&O
05/28/23 05/29/23 05/30/23
06:59 06:59 06:59
Intake Total 1979 990 / 990 720 / 720
Balance 1979 990 / 990 720 / 720
Review of Systems
-
All other systems: Reviewed and negative
Respiratory: Reports Wheezing
Physical Exam
-
General: Well Developed, Well Nourished and No Apparent Distress
HEENT: Normocephalic and Atraumatic
Respiratory: Wheezes
Cardiac: Regular Rhythm and S1/S2; Negative Murmur
GI: Soft, Nontender, Nondistended and Normal Bowel Sounds
Musculoskeletal: No Clubbing, No Cyanosis and No Edema
Neuro: Awake
[2023-05-29 15:21] VITALS: BP 124/91
[2023-05-29] MEDS: DELTASONE 50 MG PO (15:26)
--- NOTE | 2023-05-29 15:46 | CM ---
Patient seen at bedside with family and physician. Patient given IMM forms to review. Plan home with no VN due to work/job of patient. CM will continue to follow for discharge planning needs.
Plan; home with no needs.
[2023-05-29] MEDS: XARELTO 20 MG PO (17:09)
[2023-05-29] MEDS: ABILIFY 5 MG PO (17:09)
[2023-05-29] MEDS: PULMICORT 0.5 MG INH (20:00)
[2023-05-29] MEDS: SEROQUEL 500 MG PO (21:21)
[2023-05-29] MEDS: LIPITOR 40 MG PO (21:22)
[2023-05-29] MEDS: MELATONIN 10 MG PO (21:22)
[2023-05-29] MEDS: KLONOPIN 0.5 MG PO (21:22)
[2023-05-29] MEDS: LUVOX 50 MG PO (21:22)
[2023-05-29] MEDS: SEROQUEL 50 MG PO (21:24)
[2023-05-29] MEDS: NEURONTIN 100 MG PO (21:24)
[2023-05-29 23:14] VITALS: BP 114/75
[2023-05-30] MEDS: SYNTHROID 75 MCG PO (06:43)
[2023-05-30 07:30] VITALS: BP 132/92
[2023-05-30] MEDS: COLACE 100 MG PO ×2 (07:58→21:02)
[2023-05-30] MEDS: VIBRAMYCIN 100 MG PO (07:58)
[2023-05-30] MEDS: FLOMAX 0.800000000000000044 MG PO (07:58)
[2023-05-30] MEDS: SINEMET 25-100 1 TABLET PO ×3 (07:58→21:07)
[2023-05-30] MEDS: MIRALAX 17 GRAMS PO ×2 (07:58→21:02)
[2023-05-30] MEDS: DELTASONE 50 MG PO (07:58)
[2023-05-30] MEDS: MUCINEX 600 MG PO ×2 (07:58→21:02)
[2023-05-30] MEDS: FLORASTOR 250 MG PO ×2 (07:58→21:02)
[2023-05-30] MEDS: LUVOX 100 MG PO (07:58)
[2023-05-30] MEDS: VITAMIN B-12 1000 MCG PO (07:58)
[2023-05-30] MEDS: NEURONTIN 400 MG PO ×3 (07:58→17:07)
[2023-05-30] MEDS: PROTONIX 40 MG PO (07:58)
[2023-05-30] MEDS: VITAMIN D3 (cholecalciferol) 25 MCG PO (07:59)
[2023-05-30] MEDS: DUONEB 3 ML INH ×4 (08:16→19:32)
[2023-05-30] MEDS: PULMICORT 0.5 MG INH ×2 (08:16→19:32)
[2023-05-30] MEDS: STERILE WATER FOR INJECTION 10 ML IV (10:03)
[2023-05-30] MEDS: ROCEPHIN 1000 MG IV (10:03)
--- NOTE | 2023-05-30 15:31 | CON.PUL ---
Consultation
Consultation Request
Date/Time Consultation Requested: 05/30/23
Date/Time Consultation Performed: 05/30/23
Performing Provider: Mer[place]
Reason for Consultation: SOB/PNA
Medical History
-
History of Present Illness:
Pt is a 73 year old M w/ PMH of HLD, DVT/PE on Xarelto, BPH w/ chronic urinary retention, obesity, hypothyroidism, Nocturnal Hypoxia on 3L NC (sleep study neg for OSAS), Bipolar Disorder, and Parkinson's Disease admitted to on 05/26/23 for SOB and
presumed PNA which has failed outpatient treatment (noted as six days of Augmentin and oral Prednisone). He was treated with several days of abx and he does not feel significant improvement. his initially feeling of wheezing has improved. CXR from
05/26/23 showing small infiltrates b/l.
He denies a past medical history of asthma, COPD or GUERO. He is a lifelong nonsmoker. Denies family history of lung disease.
Had a history of LE DVT and on another occasion PE, has been maintained on Xarelto since.
Uses 3L NC at night for desaturations. He notes that he has had several sleep studies in the past that were negative for OSAS.
Past Medical History
Past Medical History: Other (see list below)
Social History
Tobacco: Non-smoker
Alcohol: None
Drug: None
Family History
Family History: Reviewed & Not Pertinent
Allergies / Home Medications
Allergies
Allergy/AdvReac Type Severity Reaction Status Date / Time
azithromycin Allergy Rash Verified 05/26/23 09:52
[From Zithromax Z-Sp]
erythromycin base Allergy Unknown Verified 05/26/23 09:52
[Erythromycin Base]
lamotrigine [From Lamictal] Allergy Rash Verified 05/26/23 09:52
propranolol Allergy Rash Verified 05/26/23 09:52
venlafaxine [From Effexor] Allergy Rash Verified 05/26/23 09:52
warfarin sodium Allergy Rash Verified 05/26/23 09:52
[From Coumadin]
ziprasidone HCl [From Geodon] Allergy HEADACHES, Verified 05/26/23 09:52
'FELT
WEIRD'
ziprasidone mesylate Allergy HEADACHES, Verified 05/26/23 09:52
[From Geodon] 'FELT
WEIRD'
Home Medications
Medication Instructions Recorded Confirmed Last Taken Type
cholecalciferol (vitamin D3) 25 1,000 units PO DAILY Supplement 03/09/18 05/26/23 05/26/23 History
mcg (1,000 unit) tablet
cyanocobalamin (vitamin B-12) 1,000 mcg PO DAILY Supplement 03/09/18 05/26/23 05/26/23 History
1,000 mcg tablet
melatonin 3 mg tablet 10 mg PO HS Sleep 03/09/18 05/26/23 05/25/23 History
tamsulosin 0.4 mg capsule 0.8 mg PO DAILY Urinary Issue 03/09/18 05/26/23 05/26/23 History
gabapentin 100 mg capsule 100 mg PO HS 30 days #30 caps 03/12/18 05/26/23 05/25/23 Rx
aripiprazole 2 mg tablet 5 mg PO QPM Mental Health/Anxiety 01/19/20 05/26/23 05/25/23 History
fluvoxamine 100 mg tablet 100 mg PO DAILY Mental 01/19/20 05/26/23 05/26/23 History
Health/Anxiety
fluvoxamine 50 mg tablet 50 mg PO HS Mental Health/Anxiety 01/19/20 05/26/23 05/25/23 History
gabapentin 400 mg capsule 400 mg PO TID Neurological 01/19/20 05/26/23 05/26/23 History
Condition
rivaroxaban 20 mg tablet (Xarelto) 20 mg PO QPM Blood Clot 01/19/20 05/26/23 05/25/23 History
Prevention/Tx
atorvastatin 40 mg tablet 40 mg PO HS High Cholesterol 05/26/23 05/26/23 05/25/23 History
carbidopa 25 mg-levodopa 100 mg 1 tab PO TID Neurological Condition 05/26/23 05/26/23 05/26/23 History
tablet
clonazepam 0.5 mg tablet 0.5 mg PO HS Mental Health/Anxiety 05/26/23 05/26/23 05/25/23 History
clonazepam 0.5 mg tablet 0.5 mg PO HSPRN PRN lack of 05/26/23 05/26/23 Unknown History
sleep-only in 0.5mg x1 dose
doesnot work
levothyroxine 75 mcg tablet 75 mcg PO DAILY Thyroid 05/26/23 05/26/23 05/26/23 History
(Synthroid)
pantoprazole 40 mg tablet,delayed 40 mg PO DAILY Gastrointestinal 05/26/23 05/26/23 05/26/23 History
release Issue
polyethylene glycol 3350 17 gram 17 grams PO DAILYPRN PRN 05/26/23 05/26/23 Unknown History
oral powder packet constipation
quetiapine 200 mg tablet (Seroquel) 200 mg PO DAILY Mental 05/26/23 05/26/23 05/25/23 History
Health/Anxiety
quetiapine 25 mg tablet (Seroquel) 50 mg PO HS Mental Health/Anxiety 05/26/23 05/26/23 05/25/23 History
quetiapine 300 mg tablet (Seroquel) 300 mg PO HS Mental Health/Anxiety 05/26/23 05/26/23 05/25/23 History
Review of Systems
-
History Source: Patient
All other systems: Negative unless noted
Vitals / Labs / Diagnostic Testing
Vital Signs
Temp Pulse Resp BP Pulse Ox
98.0 F 80 18 132/92 93
05/30/23 07:30 05/30/23 08:18 05/30/23 08:18 05/30/23 07:30 05/30/23 08:18
Lab Data
05/29/23 06:39
05/29/23 06:39
Microbiology
05/26/23 10:59 Blood/Venous Blood Culture - Preliminary
No Growth in 4 days- Final report to follow
05/26/23 10:22 Blood/Venous Blood Culture - Preliminary
No Growth in 4 days- Final report to follow
05/26/23 15:08 Sputum Respiratory Culture - Final
Staph aureus MRSA
Su albicans
05/26/23 15:08 Sputum Gram Stain - Final
Diagnostic Testing:
Physical Exam
-
HEENT: Normocephalic, Anicteric and Moist Mucous Membranes
Cardiovascular: S1/S2 and Regular Rhythm
Respiratory: Clear (lung hutchins), Wheeze (upper airway) and Non-Labored Respirations
GI: Soft, Distended (obese/protuberant) and Non Tender
Neurology: Awake, Alert, Oriented, AO x 3 and No Motor Deficits
Skin: Warm, Dry and Good Color
General: Comfortable and Other (NAD)
Assessment
-
Pt is a 73 year old M w/ PMH of HLD, DVT/PE on Xarelto, BPH w/ chronic urinary retention, obesity, hypothyroidism, Nocturnal Hypoxia on 3L NC (sleep study neg for OSAS), Bipolar Disorder, and Parkinson's Disease admitted to on 05/26/23 for SOB and
presumed PNA which has failed outpatient treatment (noted as six days of Augmentin and oral Prednisone). He was treated with several days of abx and he does not feel significant improvement. his initially feeling of wheezing has improved. CXR from
05/26/23 showing small infiltrates b/l. We are consulted for eval 05/30/23.
PNA, failed outpatient treatment
Abnormal CXR
SOB/wheezing
Leukocytosis
Conditions present [employer]
Hyperlipidemia
Nocturnal Hypoxia, 3L at night
Sleep studies are negative for OSAS
Bipolar Disorder
Parkinson's Disease
Hypothyroidism
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
Obesity
Cervical Spine Fusion
Exploratory Abdominal Surgery
Plan
Hypoxemia not noted on arrival, had been placed on 3L NC but now weaned to RA
He denies a past medical history of asthma, COPD or GUERO. He is a lifelong nonsmoker. Denies family history of lung disease.
Had a history of LE DVT and on another occasion PE, has been maintained on Xarelto since.
Uses 3L NC at night for desaturations. He notes that he has had several sleep studies in the past that were negative for OSAS.
Suspect patient has underlying MRSA PNA, sputum culture sent 05/26 with few MRSA-multidrug resistant
Had been on IV CTX and Azithro, will change to IV vanc
CXR obtained indicating small areas of possible PNA
Other imaging reviewed
Will obtain dedicated chest CT to evaluate further
ECHO results from 2012 reviewed showing normal function
Will check ProBNP to r/o volume overload
May consider repeat ECHO if elevated
Sputum reviewed from 05/26 with MRSA
Repeat sputum culture if able
Check procal
If not improving, may consider bedside PFT/6MWT evals
Placed on empiric prednisone, can taper to off if not helping
Continue nebs PRN
Weight loss measures recommended
Obesity contributing to respiratory symptoms
PT/OT
We will follow
Diagnostic Data
CXR 05/26/23 - Some opacity in the left lung which may represent lingular pneumonia. Cannot exclude some accompanying thickening or fluid within the left major and minor fissures
01/20/20- IMPRESSION:
1. Unremarkable chest.
2. There is much stool in the colon otherwise unremarkable abdomen
ECHO 12/22/12- Normal biventricular size and systolic function.� �Cannot rule out segmental wall motion abnormality due to poor echo windows.�Normal estimated pulmonary pressures.�
�No prior study available for comparison.
CTA Chest 12/22/12- IMPRESSION:
1. Filling defect within the left lower lobe pulmonary artery as above, which is nonocclusive.� This likely represents pulmonary embolism, however is felt to be most likely chronic due to its nonocclusive nature.
2. No occlusive pulmonary emboli are visualized.
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
4.� Multiple well-defined hypoattenuating lesions within the left lobe of the liver, most likely representing hepatic cysts.
[2023-05-30 15:52] VITALS: BP 137/96
--- NOTE | 2023-05-30 16:09 | W.PN.HOSP.TC ---
Today's Communication/Plan
-
consult pulm
Assessment / Plan
Assessment / Plan
pt is a 73 year old male
sepsis (POA) due to Acute Bronchitis in setting of Community Acquired Pneumonia--Continue ceftriaxone and doxycycline--Change Decadron 4mg q8h to prednisone, add pulmicort nebs--Continue Mucinex--Encourage use of incentive spirometer and acapella
device--consult pulm as pt not improving
Chronic Nocturnal Hypoxia--Continue supplemental oxygen at night
constipation -- miralax and stool softener
Hyperlipidemia-Continue Atorvastatin
Bipolar Disorder-Continue Abilify, Clonazepam, Fluvoxamine and Seroquel (takes all 550mg at night at once)
Parkinson's Disease-Continue carbidopa/levodopa
Hypothyroidism-Continue levothyroxine
GERD-Continue Protonix
BPH/Chronic Urinary Retention-Continue tamsulosin-Patient straight caths twice a day
DVT/PE s/p IVC Filter-Continue Xarelto
Code Status: Full Code
Anticipated Discharge: 24 - 48 hours
Subjective/Interval History
-
Date of Service: May 30, 2023
pt said that he got worse after pulmicort nebs this AM....
Objective Data
-
Vital Signs:
max temp for 24 hours
05/30/23
07:30
Temp 98.0 F
Vital Signs
Temp Pulse Resp BP Pulse Ox
98.1 F 102 20 137/96 92
05/30/23 15:52 05/30/23 15:52 05/30/23 15:52 05/30/23 15:52 05/30/23 15:52
I&O
05/29/23 05/30/23 05/31/23
06:59 06:59 06:59
Intake Total 990 / 990 2520 / 2520
Balance 990 / 990 2520 / 2520
Review of Systems
-
All other systems: Reviewed and negative
Physical Exam
-
General: Well Developed, Well Nourished and No Apparent Distress
HEENT: Normocephalic and Atraumatic
Respiratory: Clear to Auscultation; Negative Wheezes or Rhonchi
Cardiac: Regular Rhythm and S1/S2; Negative Murmur
GI: Soft, Nontender, Nondistended and Normal Bowel Sounds
Musculoskeletal: No Clubbing, No Cyanosis and No Edema
Neuro: Awake and Alert
[2023-05-30] MEDS: VANCOCIN 540 MG IV (16:11)
--- NOTE | 2023-05-30 16:13 | PHA.VAN.IN ---
Assessment
- Assessment
Renal Function: Appears similar to baseline
Concomitant Antimicrobials: NONE
- Previous Dosing Experience
Previous Regimen: NONE
AUC Dosing Plan
- Dosing Variables
Dosing Weight (kg): 102.8
Dosing CrCl (ml/min): 73
Vd coefficient (L/kg): 0.6
- Empiric Dosing
Initial / Loading Dose: 2GM
Maintenance Regimen: 1GM IV Q12H
Estimated AUC (mcg*h/mL): 515
Estimated Peak (mcg*h/mL): 29.9
Estimated Trough (mcg/ml): 14.6
Estimated Half Life (H): 10.7
Pharmacokinetics Vancomycin I
- -
Patient Age: 73
Patient Sex: Male
Vancomycin Day #: 1
Indication: Pulmonary/Respiratory
Requesting Provider: LIZA
Pertinent Antimicrobial Allergies:
Allergies
azithromycin [From Zithromax Z-Sp] Allergy (Verified 05/26/23 09:52)
Rash
erythromycin base [Erythromycin Base] Allergy (Verified 05/26/23 09:52)
Unknown
Height / Weight:
Height 5 ft 11 in
Actual Weight 102.767 kg
- Vital Signs / Lab Results
Temp Pulse Resp BP Pulse Ox
98.1 F 102 20 137/96 92
05/30/23 15:52 05/30/23 15:52 05/30/23 15:52 05/30/23 15:52 05/30/23 15:52
Lab Results - Hematology
05/28/23 05/29/23
05:04 06:39
WBC 20.3 H 19.4 H
Lab Results - Chemistry
05/28/23 05/29/23
05:04 06:39
BUN 38 H 39 H
Creatinine 1.1 1.1
Estimated Creat Clear 73 73
Microbiology Results
05/26/23 10:59 Blood Culture - Preliminary
Blood/Venous No Growth in 4 days- Final report to follow
05/26/23 10:22 Blood Culture - Preliminary
Blood/Venous No Growth in 4 days- Final report to follow
05/26/23 15:08 Respiratory Culture - Final
Sputum Staph aureus MRSA
Su albicans
Gram Stain - Final
[2023-05-30 16:47] LABS: Procalcitonin < 0.05 ng/ml (0.0-0.25)
[2023-05-30] MEDS: ABILIFY 5 MG PO (17:07)
[2023-05-30] MEDS: XARELTO 20 MG PO (17:07)
[2023-05-30] MEDS: LIPITOR 40 MG PO (21:05)
[2023-05-30] MEDS: LUVOX 50 MG PO (21:05)
[2023-05-30] MEDS: NEURONTIN 100 MG PO (21:06)
[2023-05-30] MEDS: KLONOPIN 0.5 MG PO (21:06)
[2023-05-30] MEDS: SEROQUEL 500 MG PO (21:06)
[2023-05-30] MEDS: MELATONIN 10 MG PO (21:06)
[2023-05-30] MEDS: SEROQUEL 50 MG PO (21:07)
[2023-05-30 23:00] VITALS: BP 114/78
[2023-05-31] MEDS: SYNTHROID 75 MCG PO (05:21)
[2023-05-31] MEDS: VANCOCIN 200 IV ×2 (05:21→17:46)
[2023-05-31 07:30] VITALS: BP 113/80
[2023-05-31] MEDS: DUONEB 3 ML INH ×3 (07:41→19:13)
[2023-05-31] MEDS: PULMICORT 0.5 MG INH ×2 (07:41→19:13)
[2023-05-31] MEDS: STERILE WATER FOR INJECTION IV (07:42)
[2023-05-31] MEDS: FLOMAX 0.800000000000000044 MG PO (08:12)
[2023-05-31] MEDS: PROTONIX 40 MG PO (08:13)
[2023-05-31] MEDS: DELTASONE 50 MG PO (08:13)
[2023-05-31] MEDS: LUVOX 100 MG PO (08:13)
[2023-05-31] MEDS: COLACE 100 MG PO ×2 (08:13→21:54)
[2023-05-31] MEDS: FLORASTOR 250 MG PO ×2 (08:13→21:55)
[2023-05-31] MEDS: NEURONTIN 400 MG PO ×3 (08:13→17:10)
[2023-05-31] MEDS: MUCINEX 600 MG PO ×2 (08:13→21:54)
[2023-05-31] MEDS: MIRALAX 17 GRAMS PO ×2 (08:13→21:54)
[2023-05-31] MEDS: VITAMIN D3 (cholecalciferol) 25 MCG PO (08:13)
[2023-05-31] MEDS: SINEMET 25-100 1 TABLET PO ×3 (08:13→21:55)
[2023-05-31 08:16] LABS: Hematocrit 38.7 % (39.0-52.0); Hemoglobin 13.7 g/dL (13.0-18.0); Mean Corp Hgb Conc. 35.4 g/dL (33.0-37.0); Mean Corpuscular Volume 90.4 fL (80.0-94.0); Mean Platelet Volume 9.3 fL (7.4-10.4); Platelet Count 192 10^3/uL (130-400); Red Blood Cell Count 4.28 10^6/uL (4.70-6.10); Red Cell Dist. Width 15.5 % (11.5-14.5); White Blood Cell Count 12.7 10^3/uL (4.8-10.8)
[2023-05-31] MEDS: VITAMIN B-12 1000 MCG PO (08:21)
--- NOTE | 2023-05-31 08:46 | PHA.VAN.FU ---
Vancomycin Assessment / Plan
- Assessment
Renal Function: Stable
WBC's are: Trending Down
In the past 24 hrs, patient has been: Afebrile
- Dosing Plan
Continue: Vanc 1000mg Q12H
Will continue scheduled Q12H dosing for today but estimated renal function may be overestimated due to BMI
Low threshold to switch to dose by level
- Monitoring Plan
No level(s) ordered at this time: may be slow to accumulate with BMI
Monitoring Comments: consider after 4th maintenance dose Sat PM
- Follow Up
Pharmacy will continue to follow.
Vancomycin Follow UP
- -
Patient Age: 73
Patient Sex: Male
Vancomycin Day #: 2
Indication: Pulmonary/Respiratory
Requesting Provider: Dr. Blackwood
Pertinent Antimicrobial Allergies:
azithromycin - Rash
erythromycin - Unknown
Height / Weight:
Height 5 ft 11 in
Actual Weight 102.767 kg
Pertinent Past Medical History: BMI ~31.6, Parkinsons
- Vital Signs / Lab Results
Temp Pulse Resp BP Pulse Ox
97.3 F 89 20 113/80 93
05/31/23 07:30 05/31/23 07:30 05/31/23 07:30 05/31/23 07:30 05/31/23 07:30
Lab Results - Hematology
05/29/23 05/31/23
06:39 06:58
WBC 19.4 H 12.7 H
Lab Results - Chemistry
05/29/23
06:39
BUN 39 H
Creatinine 1.1
Estimated Creat Clear 73
Microbiology Results
05/30/23 18:04 Gram Stain - Preliminary
Sputum
05/26/23 10:59 Blood Culture - Preliminary
Blood/Venous No Growth in 4 days- Final report to follow
05/26/23 10:22 Blood Culture - Preliminary
Blood/Venous No Growth in 4 days- Final report to follow
05/26/23 15:08 Respiratory Culture - Final
Sputum Staph aureus MRSA
Su albicans
Gram Stain - Final
[2023-05-31 08:47] LABS: Blood Urea Nitrogen 33 mg/dl (9-20); Calcium 8.6 mg/dl (8.4-10.2); Carbon Dioxide 27 mmol/L (22-30); Chloride 104 mmol/L (98-107); Estimated Creatinine Clearance 73 ml/min; Glucose 107 mg/dl (70-99); Potassium 4.6 mmol/L (3.5-5.1); Sodium 134 mmol/L (135-145); eGFR > 60.00
--- NOTE | 2023-05-31 11:51 | W.PN.PUL3 ---
Today's Communication / Plan
-
CT chest reviewed with patient
Better with IV vanco, continue course
Repeat sputum reviewed, normal kareen
ProBNP sent, not completed
Continue airway clearance
Assessment
-
Pt is a 73 year old M w/ PMH of HLD, DVT/PE on Xarelto, BPH w/ chronic urinary retention, obesity, hypothyroidism, Nocturnal Hypoxia on 3L NC (sleep study neg for OSAS), Bipolar Disorder, and Parkinson's Disease admitted to on 05/26/23 for SOB and
presumed PNA which has failed outpatient treatment (noted as six days of Augmentin and oral Prednisone). He was treated with several days of abx and he does not feel significant improvement. his initially feeling of wheezing has improved. CXR from
05/26/23 showing small infiltrates b/l. We are consulted for eval 05/30/23.
PNA, failed outpatient treatment
Abnormal CXR
SOB/wheezing
Leukocytosis
Conditions present MEDICAL DEVICE
Hyperlipidemia
Nocturnal Hypoxia, 3L at night
Sleep studies are negative for OSAS
Bipolar Disorder
Parkinson's Disease
Hypothyroidism
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
Obesity
Cervical Spine Fusion
Exploratory Abdominal Surgery
Plan
Hypoxemia not noted on arrival, had been placed on 3L NC but now weaned to RA
He denies a past medical history of asthma, COPD or GUERO. He is a lifelong nonsmoker. Denies family history of lung disease.
Had a history of LE DVT and on another occasion PE, has been maintained on Xarelto since.
Uses 3L NC at night for desaturations. He notes that he has had several sleep studies in the past that were negative for OSAS.
Suspect patient has underlying MRSA PNA, sputum culture sent 05/26 with few MRSA-multidrug resistant
Had been on IV CTX and Azithro, changed to IV vanc, doing well
CXR obtained indicating small areas of possible PNA
Other imaging reviewed
Ct chest reviewed, no acute findings, small areas throughout of mucus impaction
Airway clearance ongoing/encouraged
ECHO results from 2012 reviewed showing normal function
Will check ProBNP to r/o volume overload--not done, reorder sent today
May consider repeat ECHO if elevated
Sputum reviewed from 05/26 with MRSA
Repeat sputum culture with normal kareen
procal neg
If not improving, may consider bedside PFT/6MWT evals
Placed on empiric prednisone, can taper to off if not helping
Continue nebs PRN
Weight loss measures recommended
Obesity contributing to respiratory symptoms
PT/OT
Diagnostic Data
CXR 05/26/23 - Some opacity in the left lung which may represent lingular pneumonia. Cannot exclude some accompanying thickening or fluid within the left major and minor fissures
01/20/20- IMPRESSION:
1. Unremarkable chest.
2. There is much stool in the colon otherwise unremarkable abdomen
ECHO 12/22/12- Normal biventricular size and systolic function.� �Cannot rule out segmental wall motion abnormality due to poor echo windows.�Normal estimated pulmonary pressures.�
�No prior study available for comparison.
CT Chest 05/31/23- IMPRESSION: Chronic atelectasis in the lingula. No convincing acute intrathoracic process.
CTA Chest 12/22/12- IMPRESSION:
1. Filling defect within the left lower lobe pulmonary artery as above, which is nonocclusive.� This likely represents pulmonary embolism, however is felt to be most likely chronic due to its nonocclusive nature.
2. No occlusive pulmonary emboli are visualized.
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
4.� Multiple well-defined hypoattenuating lesions within the left lobe of the liver, most likely representing hepatic cysts.
Subjective Data
-
Date of Service:
Date of Service: May 31, 2023
Chief Complaint: Pulmonary Follow Up
Subjective:
patient seen and examined, no acute events on
stable on ra
feels his sob may be getting better
more productive cough noted
Objective Data
Data Reviewed
Vital Signs / I&O / Oxygen:
Vital Signs
Temp Pulse Resp BP Pulse Ox
97.3 F 81 18 113/80 92
05/31/23 07:30 05/31/23 07:46 05/31/23 07:46 05/31/23 07:30 05/31/23 07:46
Intake and Output
05/30/23 05/31/23 06/01/23
06:59 06:59 06:59
Intake Total 2520 / 2520 1440 / 1440
Balance 2520 / 2520 1440 / 1440
SaO2 92
Nasal Cannula flow liters per 3
minute
Physical Exam
General: Comfortable and Other (NAD, obese)
HEENT: Normocephalic, Anicteric and Moist Mucous Membranes
Cardiovascular: S1-S2 and Regular Rhythm
Respiratory: Clear, Wheeze (in upper airway mostly) and Non-Labored Respirations
GI: Soft, Distended (obese/protuberant), Non Tender and Normal Bowel Sounds
Neurology: Awake, Alert, Oriented, AO x 3 and No Motor Deficits
Skin: Warm, Dry and Good Color
Labs/Micro/Reports
Lab Data
05/31/23 06:58
05/31/23 06:58
Microbiology
05/26/23 10:59 Blood/Venous Blood Culture - Final
No Growth - Final Report
05/30/23 18:04 Sputum Respiratory Culture - Preliminary
Usual Respiratory Kareen
05/30/23 18:04 Sputum Gram Stain - Preliminary
05/26/23 10:22 Blood/Venous Blood Culture - Final
No Growth - Final Report
05/26/23 15:08 Sputum Respiratory Culture - Final
Staph aureus MRSA
Su albicans
05/26/23 15:08 Sputum Gram Stain - Final
[2023-05-31 14:26] LABS: NT-proBNP 176 pg/ml
[2023-05-31 15:00] VITALS: BP 130/78
--- NOTE | 2023-05-31 15:24 | CM ---
Patient seen at bedside with physician. Patient now on IV Vanco at this time. Patient family encouraging patient to go home with VN but patient wants to go back to work. CM will continue to follow for discharge planning needs.
Plan; home with no needs, watch for possible VN pending pulmonary recommendations. Watch for possible IV needs.
[2023-05-31] MEDS: DUONEB INH (15:33)
--- NOTE | 2023-05-31 15:52 | W.PN.HOSP.TC ---
Today's Communication/Plan
-
add rectal dulcolax
apprec pulm
cont vanco
WBC improved
Assessment / Plan
Assessment / Plan
pt is a 73 year old male
sepsis (POA) due to Acute Bronchitis in setting of Community Acquired Pneumonia (possibly MRSA? as screen positive)--Continue ceftriaxone and doxycycline, vanco added--Cont prednisone, pulmicort nebs--Continue Mucinex--Encourage use of incentive
spirometer and acapella device--apprec pulm
Chronic Nocturnal Hypoxia--Continue supplemental oxygen at night
constipation -- miralax and stool softener
Hyperlipidemia-Continue Atorvastatin
Bipolar Disorder-Continue Abilify, Clonazepam, Fluvoxamine and Seroquel (takes all 550mg at night at once)
Parkinson's Disease-Continue carbidopa/levodopa
Hypothyroidism-Continue levothyroxine
GERD-Continue Protonix
BPH/Chronic Urinary Retention-Continue tamsulosin-Patient straight caths twice a day
DVT/PE s/p IVC Filter-Continue Xarelto
Code Status: Full Code
Anticipated Discharge: 24 - 48 hours
Subjective/Interval History
-
Date of Service: May 31, 2023
pt encouraged
Objective Data
-
Labs:
Laboratory Results
05/31/23
06:58
WBC 12.7 H
Hgb 13.7
Hct 38.7 L
Plt Count 192
Sodium 134 L
Potassium 4.6
Chloride 104
Carbon Dioxide 27
BUN 33 H
Creatinine 1.1
Glucose 107 H
Calcium 8.6
Vital Signs:
max temp for 24 hours
05/30/23
15:52
Temp 98.1 F
Vital Signs
Temp Pulse Resp BP Pulse Ox
98.3 F 101 19 130/78 93
05/31/23 15:00 05/31/23 15:00 05/31/23 15:00 05/31/23 15:00 05/31/23 15:00
I&O
05/30/23 05/31/23 06/01/23
06:59 06:59 06:59
Intake Total 2520 / 2520 1440 / 1440
Balance 2520 / 2520 1440 / 1440
Review of Systems
-
All other systems: Reviewed and negative
Respiratory: Reports Wheezing
Physical Exam
-
General: Well Developed, Well Nourished and No Apparent Distress
HEENT: Normocephalic and Atraumatic
Respiratory: Wheezes
Cardiac: Regular Rhythm and S1/S2; Negative Murmur
GI: Soft, Nontender and Distended (tympanitic); Negative Normal Bowel Sounds
[2023-05-31] MEDS: DULCOLAX 10 MG RECTAL (17:09)
[2023-05-31] MEDS: VANCOCIN IV (17:09)
[2023-05-31] MEDS: ABILIFY 5 MG PO (17:10)
[2023-05-31] MEDS: XARELTO 20 MG PO (17:10)
[2023-05-31] MEDS: KLONOPIN 0.5 MG PO (21:51)
[2023-05-31] MEDS: SEROQUEL 500 MG PO (21:51)
[2023-05-31] MEDS: LIPITOR 40 MG PO (21:51)
[2023-05-31] MEDS: SEROQUEL 50 MG PO (21:51)
[2023-05-31] MEDS: LUVOX 50 MG PO (21:51)
[2023-05-31] MEDS: MELATONIN 10 MG PO (21:52)
[2023-05-31] MEDS: NEURONTIN 100 MG PO (21:54)
[2023-05-31 22:57] VITALS: BP 124/84
[2023-06-01] MEDS: SYNTHROID 75 MCG PO (05:54)
[2023-06-01] MEDS: VANCOCIN 200 IV ×2 (05:55→18:18)
[2023-06-01 06:32] LABS: Hematocrit 40.5 % (39.0-52.0); Hemoglobin 13.9 g/dL (13.0-18.0); Mean Corp Hgb Conc. 34.3 g/dL (33.0-37.0); Mean Corpuscular Hgb 30.8 pg (27.0-31.0); Mean Corpuscular Volume 89.8 fL (80.0-94.0); Mean Platelet Volume 9.5 fL (7.4-10.4); Platelet Count 195 10^3/uL (130-400); Red Blood Cell Count 4.51 10^6/uL (4.70-6.10); Red Cell Dist. Width 15.7 % (11.5-14.5)
[2023-06-01 06:54] LABS: Blood Urea Nitrogen 30 mg/dl (9-20); Calcium 8.7 mg/dl (8.4-10.2); Carbon Dioxide 28 mmol/L (22-30); Chloride 104 mmol/L (98-107); Estimated Creatinine Clearance 67 ml/min; Glucose 107 mg/dl (70-99); Magnesium 2.1 mg/dl (1.6-2.3); Potassium 4.8 mmol/L (3.5-5.1); Sodium 135 mmol/L (135-145); eGFR > 60.00
[2023-06-01 07:55] VITALS: BP 122/87
[2023-06-01] MEDS: MUCINEX 600 MG PO ×2 (08:11→22:05)
[2023-06-01] MEDS: FLOMAX 0.800000000000000044 MG PO (08:11)
[2023-06-01] MEDS: PROTONIX 40 MG PO (08:11)
[2023-06-01] MEDS: LUVOX 100 MG PO (08:11)
[2023-06-01] MEDS: COLACE 100 MG PO ×2 (08:12→22:05)
[2023-06-01] MEDS: NEURONTIN 400 MG PO ×3 (08:12→18:17)
[2023-06-01] MEDS: VITAMIN D3 (cholecalciferol) 25 MCG PO (08:12)
[2023-06-01] MEDS: VITAMIN B-12 1000 MCG PO (08:12)
[2023-06-01] MEDS: DUONEB 3 ML INH (08:12)
[2023-06-01] MEDS: MIRALAX 17 GRAMS PO ×2 (08:12→22:05)
[2023-06-01] MEDS: PULMICORT 0.5 MG INH ×2 (08:12→20:08)
[2023-06-01] MEDS: DELTASONE 50 MG PO (08:12)
[2023-06-01] MEDS: SINEMET 25-100 1 TABLET PO ×3 (08:13→22:05)
[2023-06-01] MEDS: FLORASTOR 250 MG PO ×2 (08:31→22:04)
[2023-06-01] MEDS: STERILE WATER FOR INJECTION IV (11:11)
--- NOTE | 2023-06-01 12:37 | W.PN.HOSP.TC ---
Today's Communication/Plan
-
enema
wheezing is better--await pulm input
Assessment / Plan
Assessment / Plan
pt is a 73 year old male
sepsis (POA) due to Acute Bronchitis in setting of Community Acquired Pneumonia (possibly MRSA? as screen positive)--Continue ceftriaxone and doxycycline, vanco added--Cont prednisone, pulmicort nebs--Continue Mucinex--Encourage use of incentive
spirometer and acapella device--apprec pulm --looking for d/c guidance
Chronic Nocturnal Hypoxia--Continue supplemental oxygen at night
constipation -- miralax and stool softener--Milk of molasses enema
Hyperlipidemia-Continue Atorvastatin
Bipolar Disorder-Continue Abilify, Clonazepam, Fluvoxamine and Seroquel (takes all 550mg at night at once)
Parkinson's Disease-Continue carbidopa/levodopa
Hypothyroidism-Continue levothyroxine
GERD-Continue Protonix
BPH/Chronic Urinary Retention-Continue tamsulosin-Patient straight caths twice a day
DVT/PE s/p IVC Filter-Continue Xarelto
Code Status: Full Code
Anticipated Discharge: 24 - 48 hours
Subjective/Interval History
-
Date of Service: June 01, 2023
pt says he is still wheezing
Objective Data
-
Labs:
Laboratory Results
06/01/23
06:01
WBC 13.0 H
Hgb 13.9
Hct 40.5
Plt Count 195
Sodium 135
Potassium 4.8
Chloride 104
Carbon Dioxide 28
BUN 30 H
Creatinine 1.2
Glucose 107 H
Calcium 8.7
Vital Signs:
max temp for 24 hours
05/31/23
15:00
Temp 98.3 F
Vital Signs
Temp Pulse Resp BP Pulse Ox
98.0 F 99 18 122/87 92
06/01/23 07:55 06/01/23 07:55 06/01/23 08:19 06/01/23 07:55 06/01/23 08:19
I&O
05/31/23 06/01/23 06/02/23
06:59 06:59 06:59
Intake Total 1440 / 1440 1800 / 1800
Balance 1440 / 1440 1800 / 1800
Review of Systems
-
All other systems: Reviewed and negative
Respiratory: Reports Wheezing
Abdomen/GI: Reports Constipated
Physical Exam
-
General: Well Developed, Well Nourished and No Apparent Distress
HEENT: Normocephalic and Atraumatic
Respiratory: Clear to Auscultation; Negative Wheezes or Rhonchi
Cardiac: Regular Rhythm and S1/S2; Negative Murmur
GI: Soft, Nontender, Normal Bowel Sounds and Distended
Musculoskeletal: No Clubbing, No Cyanosis and No Edema
Neuro: Awake
--- NOTE | 2023-06-01 12:57 | PHA.VAN.FU ---
Vancomycin Assessment / Plan
- Assessment
Renal Function: SCR Increasing (1.1>1.2)
WBC's are: Trending Up (12.7>13)
In the past 24 hrs, patient has been: Afebrile
- Dosing Plan
Continue: Vancomycin 1000mg IV Q12hrs
- Monitoring Plan
Peak Level: Ordered for tonight 06/01/23 at 20:30
Trough Level: Ordered for 06/02/23 at 05:30
- Follow Up
Pharmacy will continue to follow.
Vancomycin Follow UP
- -
Patient Age: 73
Patient Sex: Male
Vancomycin Day #: 3
Indication: Pulmonary/Respiratory
Requesting Provider: Dr. Blackwood
Pertinent Antimicrobial Allergies:
azithromycin - Rash
erythromycin - Unknown
Height / Weight:
Height 5 ft 11 in
Actual Weight 102.767 kg
Pertinent Past Medical History: BMI ~31.6, Parkinsons
- Vital Signs / Lab Results
Temp Pulse Resp BP Pulse Ox
98.0 F 99 18 122/87 92
06/01/23 07:55 06/01/23 07:55 06/01/23 08:19 06/01/23 07:55 06/01/23 08:19
Lab Results - Hematology
05/31/23 06/01/23
06:58 06:01
WBC 12.7 H 13.0 H
Lab Results - Chemistry
05/31/23 06/01/23
06:58 06:01
BUN 33 H 30 H
Creatinine 1.1 1.2
Estimated Creat Clear 73 67
Microbiology Results
05/30/23 18:04 Respiratory Culture - Final
Sputum Su albicans
Gram Stain - Final
05/26/23 10:59 Blood Culture - Final
Blood/Venous No Growth - Final Report
05/26/23 10:22 Blood Culture - Final
Blood/Venous No Growth - Final Report
05/26/23 15:08 Respiratory Culture - Final
Sputum Staph aureus MRSA
Su albicans
Gram Stain - Final
[2023-06-01 15:55] VITALS: BP 127/88
--- NOTE | 2023-06-01 16:49 | W.PN.PUL3 ---
Today's Communication / Plan
-
CT chest reviewed with patient
Better with IV vanco, continue course
Continue airway clearance
Favor completion of 10 day course ABx
PT/OT
Assessment
-
Pt is a 73 year old M w/ PMH of HLD, DVT/PE on Xarelto, BPH w/ chronic urinary retention, obesity, hypothyroidism, Nocturnal Hypoxia on 3L NC (sleep study neg for OSAS), Bipolar Disorder, and Parkinson's Disease admitted to on 05/26/23 for SOB and
presumed PNA which has failed outpatient treatment (noted as six days of Augmentin and oral Prednisone). He was treated with several days of abx and he does not feel significant improvement. his initially feeling of wheezing has improved. CXR from
05/26/23 showing small infiltrates b/l. We are consulted for eval 05/30/23.
PNA, failed outpatient treatment
Abnormal CXR
SOB/wheezing
Leukocytosis
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
Hyperlipidemia
Nocturnal Hypoxia, 3L at night
Sleep studies are negative for OSAS
Bipolar Disorder
Parkinson's Disease
Hypothyroidism
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
Obesity
Cervical Spine Fusion
Exploratory Abdominal Surgery
Plan
Hypoxemia not noted on arrival, had been placed on 3L NC but now weaned to RA
He denies a past medical history of asthma, COPD or GUERO. He is a lifelong nonsmoker. Denies family history of lung disease.
Had a history of LE DVT and on another occasion PE, has been maintained on Xarelto since.
Uses 3L NC at night for desaturations. He notes that he has had several sleep studies in the past that were negative for OSAS.
Suspect patient has underlying MRSA PNA, sputum culture sent 05/26 with few MRSA-multidrug resistant
Had been on IV CTX and Azithro, changed to IV vanc, doing well with improved leukocytosis since IV vanc started
CXR obtained indicating small areas of possible PNA
Other imaging reviewed
Ct chest reviewed, no acute findings, small areas throughout of mucus impaction
Airway clearance ongoing/encouraged
ECHO results from 2012 reviewed showing normal function
Will check ProBNP to r/o volume overload--not done, reorder sent today
May consider repeat ECHO if elevated
Sputum reviewed from 05/26 with MRSA
Repeat sputum culture with normal kareen
procal neg
If not improving, may consider bedside PFT/6MWT evals
Placed on empiric prednisone, wean by reducing by 10mg every 4th day until off
Continue nebs PRN
Weight loss measures recommended
Obesity contributing to respiratory symptoms
PT/OT
Considering he has continued to improve, would favor another 24 hrs of IV vancomycin and then plan to discharge home on Saturday to complete a 10 day course of ABx. Can DC home on doxycycline. Patient agrees with this plan.
Patient seen and examined on 06/01/2023
Diagnostic Data
CXR 05/26/23 - Some opacity in the left lung which may represent lingular pneumonia. Cannot exclude some accompanying thickening or fluid within the left major and minor fissures
01/20/20- IMPRESSION:
1. Unremarkable chest.
2. There is much stool in the colon otherwise unremarkable abdomen
ECHO 12/22/12- Normal biventricular size and systolic function.� �Cannot rule out segmental wall motion abnormality due to poor echo windows.�Normal estimated pulmonary pressures.�
�No prior study available for comparison.
CT Chest 05/31/23- IMPRESSION: Chronic atelectasis in the lingula. No convincing acute intrathoracic process.
CTA Chest 12/22/12- IMPRESSION:
1. Filling defect within the left lower lobe pulmonary artery as above, which is nonocclusive.� This likely represents pulmonary embolism, however is felt to be most likely chronic due to its nonocclusive nature.
2. No occlusive pulmonary emboli are visualized.
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
4.� Multiple well-defined hypoattenuating lesions within the left lobe of the liver, most likely representing hepatic cysts.
Subjective Data
-
Date of Service:
Date of Service: June 01, 2023
Chief Complaint: Pulmonary Follow Up
Subjective:
Seen this evening. Resting in bed in [facility] on room air. He says he has been feeling better today. Has dry cough. Denies chest pain. No f/c.
Review of Systems
General: Other (negative unless mentioned above)
Objective Data
Data Reviewed
Vital Signs / I&O / Oxygen:
Vital Signs
Temp Pulse Resp BP Pulse Ox
98.0 F 99 18 122/87 92
06/01/23 07:55 06/01/23 07:55 06/01/23 08:19 06/01/23 07:55 06/01/23 08:19
Intake and Output
05/31/23 06/01/23 06/02/23
06:59 06:59 06:59
Intake Total 1440 / 1440 1800 / 1800
Balance 1440 / 1440 1800 / 1800
SaO2 92
Nasal Cannula flow liters per 3
minute
Physical Exam
General: Comfortable and Other (NAD, obese)
HEENT: Normocephalic, Anicteric and Moist Mucous Membranes
Cardiovascular: S1-S2 and Peripheral Edema (negative)
Respiratory: Wheeze (negative), Crackles (negative), Rhonchi (bibasilar), Non-Labored Respirations and Accessory Resp Muscle Use (negative)
GI: Soft, Distended (obese/protuberant), Non Tender and Normal Bowel Sounds
Neurology: AO x 3 and No Motor Deficits
Skin: Warm, Dry and Good Color
Labs/Micro/Reports
Lab Data
06/01/23 06:01
06/01/23 06:01
Microbiology
05/30/23 18:04 Sputum Respiratory Culture - Final
Su albicans
05/30/23 18:04 Sputum Gram Stain - Final
05/26/23 10:59 Blood/Venous Blood Culture - Final
No Growth - Final Report
05/26/23 10:22 Blood/Venous Blood Culture - Final
No Growth - Final Report
05/26/23 15:08 Sputum Respiratory Culture - Final
Staph aureus MRSA
Su albicans
05/26/23 15:08 Sputum Gram Stain - Final
[2023-06-01] MEDS: XARELTO 20 MG PO (18:17)
[2023-06-01] MEDS: ABILIFY 5 MG PO (18:17)
[2023-06-01] MEDS: LIPITOR 40 MG PO (22:05)
[2023-06-01] MEDS: NEURONTIN 100 MG PO (22:05)
[2023-06-01] MEDS: LUVOX 50 MG PO (22:05)
[2023-06-01] MEDS: MELATONIN 10 MG PO (22:05)
[2023-06-01] MEDS: SEROQUEL 500 MG PO (22:13)
[2023-06-01] MEDS: KLONOPIN 0.5 MG PO (22:14)
[2023-06-01] MEDS: SEROQUEL 50 MG PO (22:14)
[2023-06-01 22:59] VITALS: BP 128/90
[2023-06-02] MEDS: SYNTHROID 75 MCG PO (06:05)
[2023-06-02 07:00] VITALS: BP 146/88
[2023-06-02 07:40] LABS: Hematocrit 41.2 % (39.0-52.0); Hemoglobin 14.3 g/dL (13.0-18.0); Mean Corp Hgb Conc. 34.7 g/dL (33.0-37.0); Mean Corpuscular Hgb 31.5 pg (27.0-31.0); Mean Corpuscular Volume 90.7 fL (80.0-94.0); Mean Platelet Volume 9.2 fL (7.4-10.4); Platelet Count 189 10^3/uL (130-400); Red Blood Cell Count 4.54 10^6/uL (4.70-6.10); Red Cell Dist. Width 15.6 % (11.5-14.5); White Blood Cell Count 14.9 10^3/uL (4.8-10.8)
[2023-06-02] MEDS: DUONEB 3 ML INH ×2 (07:50→20:16)
[2023-06-02] MEDS: PULMICORT 0.5 MG INH ×2 (07:50→20:16)
[2023-06-02 08:00] LABS: Blood Urea Nitrogen 33 mg/dl (9-20); Calcium 8.8 mg/dl (8.4-10.2); Carbon Dioxide 30 mmol/L (22-30); Chloride 102 mmol/L (98-107); Estimated Creatinine Clearance 73 ml/min; Glucose 96 mg/dl (70-99); Magnesium 2.2 mg/dl (1.6-2.3); Potassium 4.6 mmol/L (3.5-5.1); Sodium 134 mmol/L (135-145); eGFR > 60.00
[2023-06-02] MEDS: VANCOCIN 200 IV ×2 (09:01→17:26)
[2023-06-02] MEDS: MIRALAX 17 GRAMS PO ×2 (09:02→22:05)
[2023-06-02] MEDS: FLORASTOR 250 MG PO ×2 (09:02→22:19)
[2023-06-02] MEDS: FLOMAX 0.800000000000000044 MG PO (09:06)
[2023-06-02] MEDS: COLACE 100 MG PO ×2 (09:06→22:07)
[2023-06-02] MEDS: DELTASONE 50 MG PO (09:06)
[2023-06-02] MEDS: LUVOX 100 MG PO (09:06)
[2023-06-02] MEDS: NEURONTIN 400 MG PO ×3 (09:07→17:26)
[2023-06-02] MEDS: PROTONIX 40 MG PO (09:07)
[2023-06-02] MEDS: MUCINEX 600 MG PO ×2 (09:07→22:06)
[2023-06-02] MEDS: SINEMET 25-100 1 TABLET PO ×3 (09:07→22:05)
[2023-06-02] MEDS: VITAMIN B-12 1000 MCG PO (09:08)
[2023-06-02] MEDS: STERILE WATER FOR INJECTION IV (09:08)
[2023-06-02] MEDS: VITAMIN D3 (cholecalciferol) 25 MCG PO (09:08)
--- NOTE | 2023-06-02 10:18 | PHA.VAN.FU ---
Vancomycin Assessment / Plan
- Assessment
Renal Function: SCR Decreasing (1.2>1.1)
WBC's are: Trending Up (13>14.9)
In the past 24 hrs, patient has been: Afebrile
- Assessment - Therapeutic Drug Monitoring
Extrapolated Cmax (mcg/mL): 32
Peak level was drawn: More than 3 hours after previous dose
Extrapolated Cmin (mcg/mL): 16
Levels were drawn: At steady state
Calculated AUC (mcg*h/mL): 559
Calculated ke: 0.0616
Calculated half life (H): 11
Calculated Vd (L): 58
Calculated Vanc CL (ml/min): 60
- Dosing Plan
Continue: Vancomycin 1000mg IV Q12hrs
Dosing Comments: targeting higher AUC due to patient with MRSA Pneumonia
- Monitoring Plan
No level(s) ordered at this time: Will keep an eye on renal function and recheck levels accordingly
- Follow Up
Pharmacy will continue to follow.
Vancomycin Follow UP
- -
Patient Age: 73
Patient Sex: Male
Vancomycin Day #: 4
Indication: Pulmonary/Respiratory (MRSA+)
Requesting Provider: Dr. Blackwood
Pertinent Antimicrobial Allergies:
azithromycin - Rash
erythromycin - Unknown
Height / Weight:
Height 5 ft 11 in
Actual Weight 102.767 kg
Pertinent Past Medical History: BMI ~31.6, Parkinsons
- Vital Signs / Lab Results
Temp Pulse Resp BP Pulse Ox
97.7 F 71 16 146/88 93
06/02/23 07:00 06/02/23 07:55 06/02/23 07:55 06/02/23 07:00 06/02/23 07:55
Lab Results - Hematology
05/31/23 06/01/23 06/02/23
06:58 06:01 06:32
WBC 12.7 H 13.0 H 14.9 H
Lab Results - Chemistry
05/31/23 06/01/23 06/02/23
06:58 06:01 06:32
BUN 33 H 30 H 33 H
Creatinine 1.1 1.2 1.1
Estimated Creat Clear 73 67 73
Microbiology Results
05/30/23 18:04 Respiratory Culture - Final
Sputum Su albicans
Gram Stain - Final
05/26/23 10:59 Blood Culture - Final
Blood/Venous No Growth - Final Report
05/26/23 10:22 Blood Culture - Final
Blood/Venous No Growth - Final Report
Therapeutic Drug Monitoring
Vancomycin Peak 28.0 ug/ml (18-26) H 06/01/23 21:27
Vancomycin Trough 16.0 ug/ml (5-20) 06/02/23 06:32
--- NOTE | 2023-06-02 13:01 | W.PN.HOSP.TC ---
Today's Communication/Plan
-
anticipate home Saturday with PO doxycycline
Assessment / Plan
Assessment / Plan
pt is a 73 year old male
sepsis (POA) due to Acute Bronchitis in setting of Community Acquired Pneumonia (likely MRSA as screen positive)--was on ceftriaxone and doxycycline, pulm changed to vanco--Cont prednisone, pulmicort nebs--Continue Mucinex--Encourage use of
incentive spirometer and acapella device--apprec pulm --looking for d/c guidance, likely Saturday with PO doxy
Chronic Nocturnal Hypoxia--Continue supplemental oxygen at night
constipation -- miralax and stool softener--Milk of molasses enema not needed
Hyperlipidemia-Continue Atorvastatin
Bipolar Disorder-Continue Abilify, Clonazepam, Fluvoxamine and Seroquel (takes all 550mg at night at once)
Parkinson's Disease-Continue carbidopa/levodopa
Hypothyroidism-Continue levothyroxine
GERD-Continue Protonix
BPH/Chronic Urinary Retention-Continue tamsulosin-Patient straight caths twice a day
DVT/PE s/p IVC Filter-Continue Xarelto
Code Status: Full Code
Anticipated Discharge: Within 24 hours
Subjective/Interval History
-
Date of Service: June 02, 2023
pt moved bowels and seems to be wheezing less
Objective Data
-
Labs:
Laboratory Results
06/02/23
06:32
WBC 14.9 H
Hgb 14.3
Hct 41.2
Plt Count 189
Sodium 134 L
Potassium 4.6
Chloride 102
Carbon Dioxide 30
BUN 33 H
Creatinine 1.1
Glucose 96
Calcium 8.8
Vital Signs:
max temp for 24 hours
06/01/23
15:55
Temp 98.1 F
Vital Signs
Temp Pulse Resp BP Pulse Ox
97.7 F 71 16 146/88 93
06/02/23 07:00 06/02/23 07:55 06/02/23 07:55 06/02/23 07:00 06/02/23 07:55
I&O
06/01/23 06/02/23 06/03/23
06:59 06:59 06:59
Intake Total 1800 / 1800 1919
Balance 1800 / 1800 1919
Review of Systems
-
All other systems: Reviewed and negative
Respiratory: Reports Wheezing
Physical Exam
-
General: Well Developed, Well Nourished and No Apparent Distress
HEENT: Normocephalic and Atraumatic; Negative Oxygen
Respiratory: Wheezes (improving)
Cardiac: Regular Rhythm and S1/S2; Negative Murmur
GI: Soft, Nontender, Nondistended and Normal Bowel Sounds
Musculoskeletal: No Clubbing, No Cyanosis and No Edema
[2023-06-02 15:27] VITALS: BP 130/83
[2023-06-02] MEDS: XARELTO 20 MG PO (17:26)
--- NOTE | 2023-06-02 17:35 | W.PN.PUL3 ---
Today's Communication / Plan
-
CT chest reviewed with patient
Better with IV vanco, continue course
Continue airway clearance
Favor completion of 10-14 day course ABx
PT/OT
Assessment
-
Pt is a 73 year old M w/ PMH of HLD, DVT/PE on Xarelto, BPH w/ chronic urinary retention, obesity, hypothyroidism, Nocturnal Hypoxia on 3L NC (sleep study neg for OSAS), Bipolar Disorder, and Parkinson's Disease admitted to on 05/26/23 for SOB and
presumed PNA which has failed outpatient treatment (noted as six days of Augmentin and oral Prednisone). He was treated with several days of abx and he does not feel significant improvement. his initially feeling of wheezing has improved. CXR from
05/26/23 showing small infiltrates b/l. We are consulted for eval 05/30/23.
PNA, failed outpatient treatment
Abnormal CXR
SOB/wheezing
Leukocytosis
Conditions present [employer]
Hyperlipidemia
Nocturnal Hypoxia, 3L at night
Sleep studies are negative for OSAS
Bipolar Disorder
Parkinson's Disease
Hypothyroidism
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
Obesity
Cervical Spine Fusion
Exploratory Abdominal Surgery
Plan
Hypoxemia not noted on arrival, had been placed on 3L NC but now weaned to RA
He denies a past medical history of asthma, COPD or GUERO. He is a lifelong nonsmoker. Denies family history of lung disease.
Had a history of LE DVT and on another occasion PE, has been maintained on Xarelto since.
Uses 3L NC at night for desaturations. He notes that he has had several sleep studies in the past that were negative for OSAS.
Patient has underlying MRSA PNA, sputum culture sent 05/26 with few MRSA-multidrug resistant
Had been on IV CTX and Azithro, changed to IV vanc, doing well with improved leukocytosis since IV vanc started
Will finish IV vancomycin over the weekend and then transition to doxycycline tomorrow to finish off a 10-14-day course
CXR obtained indicating small areas of possible PNA
Other imaging reviewed
Ct chest reviewed, no acute findings, small areas throughout of mucus impaction
Airway clearance ongoing/encouraged
Check MRSA swab to see if pt is a carrier
ECHO results from 2012 reviewed showing normal function
Will check ProBNP to r/o volume overload--not done, reorder sent today
May consider repeat ECHO if elevated
Sputum reviewed from 05/26 with MRSA
Repeat sputum culture with normal kareen
procal neg
If not improving, may consider bedside PFT/6MWT evals
Placed on empiric prednisone, wean by reducing by 10mg every 4th day until off
Continue nebs PRN
Weight loss measures recommended
Obesity contributing to respiratory symptoms
PT/OT
Considering he has continued to improve, would favor another 24 hrs of IV vancomycin and then plan to discharge home on Saturday to complete a 10 day course of ABx. Can DC home on doxycycline. Patient agrees with this plan.
Pulmonary service will continue to follow along while he remains inpatient.
Diagnostic Data
CXR 05/26/23 - Some opacity in the left lung which may represent lingular pneumonia. Cannot exclude some accompanying thickening or fluid within the left major and minor fissures
01/20/20- IMPRESSION:
1. Unremarkable chest.
2. There is much stool in the colon otherwise unremarkable abdomen
ECHO 12/22/12- Normal biventricular size and systolic function.� �Cannot rule out segmental wall motion abnormality due to poor echo windows.�Normal estimated pulmonary pressures.�
�No prior study available for comparison.
CT Chest 05/31/23- IMPRESSION: Chronic atelectasis in the lingula. No convincing acute intrathoracic process.
CTA Chest 12/22/12- IMPRESSION:
1. Filling defect within the left lower lobe pulmonary artery as above, which is nonocclusive.� This likely represents pulmonary embolism, however is felt to be most likely chronic due to its nonocclusive nature.
2. No occlusive pulmonary emboli are visualized.
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
4.� Multiple well-defined hypoattenuating lesions within the left lobe of the liver, most likely representing hepatic cysts.
Subjective Data
-
Date of Service:
Date of Service: June 02, 2023
Chief Complaint: Pulmonary Follow Up
Subjective:
Patient seen this afternoon. Lying in bed in no acute distress on room air. Still has a cough which is sometimes difficult to expectorate. No real change in his respiratory status compared to yesterday. No acute events reported from overnight.
Review of Systems
General: Other (12 point ROS performed and is negative unless mentioned above.)
Objective Data
Data Reviewed
Vital Signs / I&O / Oxygen:
Vital Signs
Temp Pulse Resp BP Pulse Ox
98.6 F 80 16 130/83 93
06/02/23 15:27 06/02/23 20:19 06/02/23 20:19 06/02/23 15:27 06/02/23 20:19
Intake and Output
06/01/23 06/02/23 06/03/23
06:59 06:59 06:59
Intake Total 1800 / 1800 1920 / 1920 3200 / 3200
Balance 1800 / 1800 1920 / 1920 3200 / 3200
SaO2 93
Nasal Cannula flow liters per 3
minute
Physical Exam
General: Comfortable and Other (NAD, obese)
HEENT: Normocephalic, Anicteric and Moist Mucous Membranes
Cardiovascular: S1-S2 and Peripheral Edema (negative)
Respiratory: Wheeze (Chaves upon expiration bilaterally), Crackles (bilateral), Rhonchi (negative), Non-Labored Respirations and Accessory Resp Muscle Use (negative)
GI: Soft, Distended (obese/protuberant), Non Tender and Normal Bowel Sounds
Neurology: AO x 3 and No Motor Deficits
Skin: Warm, Dry and Good Color
Labs/Micro/Reports
Lab Data
06/02/23 06:32
06/02/23 06:32
Microbiology
05/30/23 18:04 Sputum Respiratory Culture - Final
Su albicans
05/30/23 18:04 Sputum Gram Stain - Final
05/26/23 10:59 Blood/Venous Blood Culture - Final
No Growth - Final Report
05/26/23 10:22 Blood/Venous Blood Culture - Final
No Growth - Final Report
[2023-06-02] MEDS: ABILIFY 5 MG PO (18:15)
[2023-06-02] MEDS: SEROQUEL 50 MG PO (22:06)
[2023-06-02] MEDS: LUVOX 50 MG PO (22:06)
[2023-06-02] MEDS: SEROQUEL 500 MG PO (22:06)
[2023-06-02] MEDS: NEURONTIN 100 MG PO (22:07)
[2023-06-02] MEDS: LIPITOR 40 MG PO (22:07)
[2023-06-02] MEDS: MELATONIN 10 MG PO (22:07)
[2023-06-02] MEDS: KLONOPIN 0.5 MG PO (22:07)
[2023-06-02 22:22] VITALS: BP 119/92
[2023-06-03] MEDS: VANCOCIN 200 IV (06:28)
[2023-06-03] MEDS: SYNTHROID 75 MCG PO (06:28)
[2023-06-03 07:17] VITALS: BP 125/91
[2023-06-03 07:35] LABS: Hematocrit 42.3 % (39.0-52.0); Hemoglobin 14.6 g/dL (13.0-18.0); Mean Corp Hgb Conc. 34.5 g/dL (33.0-37.0); Mean Corpuscular Hgb 31.5 pg (27.0-31.0); Mean Corpuscular Volume 91.4 fL (80.0-94.0); Mean Platelet Volume 9.5 fL (7.4-10.4); Platelet Count 181 10^3/uL (130-400); Red Blood Cell Count 4.63 10^6/uL (4.70-6.10); Red Cell Dist. Width 15.3 % (11.5-14.5); White Blood Cell Count 15.1 10^3/uL (4.8-10.8)
[2023-06-03] MEDS: DUONEB 3 ML INH (07:52)
[2023-06-03] MEDS: PULMICORT 0.5 MG INH (07:52)
[2023-06-03] MEDS: NEURONTIN 400 MG PO ×2 (08:01→12:00)
[2023-06-03] MEDS: FLORASTOR 250 MG PO (08:01)
[2023-06-03] MEDS: LUVOX 100 MG PO (08:01)
[2023-06-03] MEDS: MUCINEX 600 MG PO (08:01)
[2023-06-03] MEDS: MIRALAX 17 GRAMS PO (08:01)
[2023-06-03] MEDS: FLOMAX 0.800000000000000044 MG PO (08:01)
[2023-06-03] MEDS: SINEMET 25-100 1 TABLET PO (08:01)
[2023-06-03] MEDS: VITAMIN B-12 1000 MCG PO (08:01)
[2023-06-03] MEDS: DELTASONE 50 MG PO (08:01)
[2023-06-03] MEDS: VITAMIN D3 (cholecalciferol) 25 MCG PO (08:01)
[2023-06-03] MEDS: PROTONIX 40 MG PO (08:01)
[2023-06-03] MEDS: COLACE 100 MG PO (08:02)
[2023-06-03 08:58] LABS: Blood Urea Nitrogen 33 mg/dl (9-20); Calcium 8.8 mg/dl (8.4-10.2); Carbon Dioxide 25 mmol/L (22-30); Chloride 99 mmol/L (98-107); Estimated Creatinine Clearance 80 ml/min; Glucose 151 mg/dl (70-99); Potassium 4.1 mmol/L (3.5-5.1); Sodium 132 mmol/L (135-145); eGFR > 60.00
--- NOTE | 2023-06-03 09:12 | PHA.VAN.FU ---
Vancomycin Assessment / Plan
- Assessment
Renal Function: Stable
WBC's are: Stable
In the past 24 hrs, patient has been: Afebrile
Prior note states peak was drawn > 3H after previous dose, which would lead to decreased accuracy of calculations but appears was drawn ~2.15H after end of previous infusion and was in appropriate window
- Dosing Plan
Continue: Vanc 1000mg Q12H
- Monitoring Plan
Peak Level: 06/03 20:30
Trough Level: 06/04 05:30
Monitoring Comments: levels to be drawn after 8th maintenance dose
Repeat levels to assess for accumulation since prior Peak, Trough, AUC were at higher end of range
- Follow Up
Pharmacy will continue to follow.
Vancomycin Follow UP
- -
Patient Age: 73
Patient Sex: Male
Vancomycin Day #: 5
Indication: Pulmonary/Respiratory
Requesting Provider: Dr. Blackwood
Pertinent Antimicrobial Allergies:
azithromycin - Rash
erythromycin - Unknown
Height / Weight:
Height 5 ft 11 in
Actual Weight 102.767 kg
Pertinent Past Medical History: BMI ~31.6, Parkinsons
- Vital Signs / Lab Results
Temp Pulse Resp BP Pulse Ox
97.6 F 74 16 125/91 96
06/03/23 07:17 06/03/23 07:54 06/03/23 07:54 06/03/23 07:17 06/03/23 07:54
Lab Results - Hematology
06/01/23 06/02/23 06/03/23
06:01 06:32 06:59
WBC 13.0 H 14.9 H 15.1 H
Lab Results - Chemistry
06/01/23 06/02/23 06/03/23
06:01 06:32 06:59
BUN 30 H 33 H 33 H
Creatinine 1.2 1.1 1.0
Estimated Creat Clear 67 73 80
Microbiology Results
05/30/23 18:04 Respiratory Culture - Final
Sputum Su albicans
Gram Stain - Final
Therapeutic Drug Monitoring
Vancomycin Peak 28.0 ug/ml (18-26) H 06/01/23 21:27
Vancomycin Trough 16.0 ug/ml (5-20) 06/02/23 06:32
--- NOTE | 2023-06-03 13:17 | CM ---
residential program manager reviewed patient's chart and met with patient and patient and patient is cleared for discharge today, patient has declined visiting nurses.
Plan; Home no needs.
--- NOTE | 2023-06-03 16:53 | W.PN.HOSP.TC ---
Today's Communication/Plan
-
d/c home
Assessment / Plan
Assessment / Plan
pt is a 73 year old male
sepsis (POA) due to Acute Bronchitis in setting of Community Acquired Pneumonia (likely MRSA as screen positive)--was on ceftriaxone and doxycycline, pulm changed to vanco--Cont prednisone, pulmicort nebs--Continue Mucinex--Encourage use of
incentive spirometer and acapella device--apprec pulm --discharge on home oral doxycycline
Chronic Nocturnal Hypoxia--will need to f/u with pulmonology
constipation -- miralax and stool softener--Milk of molasses enema not needed
Hyperlipidemia-Continue Atorvastatin
Bipolar Disorder-Continue Abilify, Clonazepam, Fluvoxamine and Seroquel (takes all 550mg at night at once)
Parkinson's Disease-Continue carbidopa/levodopa
Hypothyroidism-Continue levothyroxine
GERD-Continue Protonix
BPH/Chronic Urinary Retention-Continue tamsulosin-Patient straight caths twice a day
DVT/PE s/p IVC Filter-Continue Xarelto
Code Status: Full Code
More than 30 minutes spent in discharge including
Final examination of the patient
Summarizing hospital stay
Instructions for continuing care to all relevant caregivers
Preparation of discharge records, prescriptions, and referral forms
Total time spent (in minutes): 38 mins
Anticipated Discharge: Today
Subjective/Interval History
-
Date of Service: June 03, 2023
Resting comfortably in bed
No excessive shortness of breath
Off of oxygen
Objective Data
-
Labs:
Laboratory Results
06/03/23
06:59
WBC 15.1 H
Hgb 14.6
Hct 42.3
Plt Count 181
Sodium 132 L
Potassium 4.1
Chloride 99
Carbon Dioxide 25
BUN 33 H
Creatinine 1.0
Glucose 151 H
Calcium 8.8
Vital Signs:
Vital Signs
Temp Pulse Resp BP Pulse Ox
97.6 F 74 16 125/91 96
06/03/23 07:17 06/03/23 07:54 06/03/23 07:54 06/03/23 07:17 06/03/23 07:54
I&O
06/02/23 06/03/23 06/04/23
06:59 06:59 06:59
Intake Total 1919 3680 / 3680
Balance 1919 3680 / 3680
Review of Systems
-
Respiratory: Reports Cough
Cardiac: Reports No Symptoms
Abdomen/GI: Reports No Symptoms
Physical Exam
-
General: No Apparent Distress
HEENT: Negative Oxygen
Respiratory: Clear to Auscultation
Cardiac: Regular Rhythm and S1/S2; Negative Murmur
Musculoskeletal: No Clubbing, No Cyanosis and No Edema
Neuro: Awake, Alert, Oriented and No Motor Deficits
--- NOTE | 2023-06-04 07:34 | W.DCSUMMARY ---
Discharge Summary
Discharge Data
Date of Admission: 05/26/23
Date of Discharge: 06/03/23
-
Pending Results: No
Hospital Course
Discharging Physician : Dr Adrián Douglas
Disposition : To home
Primary care physician : Dr Vangie Monterroso Tenthoff
Principal Discharge diagnosis :
Sepsis due to community acquired pneumonia from methicillin-resistant Staphylococcus aureus
Chronic Discharge diagnosis :
Chronic nocturnal hypoxia
Hyperlipidemia
Bipolar disorder
Parkinson's disease
Hypothyroidism
Gastroesophageal reflux disease
Benign prostatic hyperplasia
Chronic urinary retention
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
Hospital Course :
Patient is a 73-year-old male with above-mentioned past medical history of to ER for new onset of shortness of breath despite 6 days of Augmentin and oral prednisone therapy. Patient was initially started on Rocephin and doxycycline for treatment
of antibiotic therapy for pneumonia. Pulmonology was involved in care as well. Patient had some wheezing on exam as well and was started on steroid therapy. Respiratory culture collected as part of workup later grew MRSA. Patient antibiotic were
changed to vancomycin. Follow-up CT chest without contrast showed chronic atelectasis without overt pneumonia. Patient had improvement in symptoms over the next few days and at discharge patient was transitioned to oral doxycycline therapy and
tapering course of oral prednisone. Patient was discharged home with follow-up with primary care physician
Important imaging findings :
None
Procedure findings :
None
Discharge Plan
-
Patient Disposition: Home (Routine Discharge)
Discharge Diagnosis/Procedures: Sepsis (present on admission) due to acute bronchitis in the setting of community-acquired pneumonia likely MRSA pneumonia, chronic nocturnal hypoxia, constipation, hyperlipidemia, bipolar disorder, Parkinson's
disease, hypothyroidism, gastroesophageal reflux disease, benign prostatic hyperplasia with chronic urinary retention, deep venous thrombosis/pulmonary embolism status post IVC filter in past
Condition: Good
Diet: Low Cholesterol and No added salt
Activity: As tolerated
Driving Restrictions: As prior to admission
Bathing Restrictions: None
Referrals:
Razia Blackwood DO [Active] -
TenthVangie arce MD [Family Provider] - in less than 1 week
Prescriptions:
New
prednisone 10 mg Tablet
See Rx Instructions .ROUTE .COMPLEX Qty: 45 0RF
Rx Instructions:
Take By Mouth:
50 mg daily x3 days, 40 mg daily x3 days,
30 mg daily x3 days, 20 mg daily x3 days,
10 mg daily x3 days
doxycycline hyclate 100 mg tablet
100 mg PO BID Qty: 24 0RF
Continued
cyanocobalamin (vitamin B-12) 1,000 MCG tablet
1,000 mcg PO DAILY
melatonin 3 MG tablet
10 mg PO HS
tamsulosin 0.4 MG capsule
0.8 mg PO DAILY
cholecalciferol (vitamin D3) 1,000 UNITS tablet
1,000 units PO DAILY
gabapentin 100 MG capsule
100 mg PO HS 30 Days Qty: 30 0RF
fluvoxamine 100 mg Tablet
100 mg PO DAILY
fluvoxamine 50 mg Tablet
50 mg PO HS
Xarelto 20 mg Tablet
20 mg PO QPM
gabapentin 400 MG capsule
400 mg PO TID
aripiprazole 2 MG tablet
5 mg PO QPM
atorvastatin 40 mg Tablet
40 mg PO HS
pantoprazole 40 mg Tablet,Delayed Release (Dr/Ec)
40 mg PO DAILY
carbidopa-levodopa 25-100 mg Tablet
1 tab PO TID
clonazepam 0.5 MG tablet
0.5 mg PO HSPRN PRN (Reason: lack of sleep-only in 0.5mg x1 dose doesnot work)
quetiapine [Seroquel] 25 mg Tablet
50 mg PO HS
Rx Instructions:
take [id number] and 200mg for a total of 550mg
quetiapine [Seroquel] 300 mg Tablet
300 mg PO HS
Rx Instructions:
take with 50mg and 200mg for a total of 550mg
clonazepam 0.5 mg Tablet
0.5 mg PO HS
quetiapine [Seroquel] 200 mg Tablet
200 mg PO DAILY
Rx Instructions:
take with 300mg and 50mg for a total of 550mg
levothyroxine [Synthroid] 75 mcg Tablet
75 mcg PO DAILY
polyethylene glycol 3350 17 GRAMS powder in packet
17 grams PO DAILYPRN PRN (Reason: constipation)
Discharge Orders:
Discharge Patient (As Directed); Ordered 06/03/23
Ordered By: Adrián Douglas
Discharge Date and Time
Discharge Date/Time: 06/03/23 14:31
== END 2023-06-03 14:31 | disposition home or self-care (01) | DRG 871 ==
LOC: 4 WEST ACU 13:48
PROVIDERS: Internal Medicine; Physician Assistant Medical; ADMITTING PHYSICIAN Internal Medicine; ATTENDING PHYSICIAN Hospitalist; CONSULT PHYSICIAN Internal Medicine; EMERGENCY PHYSICIAN Emergency Medicine; FAMILY PHYSICIAN Family Medicine
DX: A41.9 Sepsis, unspecified organism (principal); J18.9 Pneumonia, unspecified organism; J20.9 Acute bronchitis, unspecified; R09.02 Hypoxemia; F31.9 Bipolar disorder, unspecified; G20.A1 Parkinson's disease without dyskinesia, without mention of fluctuations; E03.9 Hypothyroidism, unspecified; K21.9 Gastro-esophageal reflux disease without esophagitis; Z79.01 Long term (current) use of anticoagulants; R33.9 Retention of urine, unspecified; E66.9 Obesity, unspecified; Z68.31 Body mass index [BMI] 31.0-31.9, adult; E78.00 Pure hypercholesterolemia, unspecified; Z11.52 Encounter for screening for COVID-19
CPT/HCPCS: 71046; 71250; 80048; 80053; 80202; 83605; 83735; 83880; 84145; 84484; 85025; 85027; 87040; 87070; 87147; 87186; 87205; 87502; 87811; 93005; 94640; 96374; 99285

== ENCOUNTER 2023-07-12 17:42 | Inpatient (IN) | payer OTHER, SELFPAY ==
[2023-07-12] VITALS (7 sets, daily range): BP systolic 121–151; BP diastolic 87–105; BMI 32.1
[2023-07-12 11:59] LABS: % Basophils 0.5 % (0-2); % Immature Granulocytes 1.2 % (0-0.5); % Lymphocytes 13.3 % (20.5-51.1); % Monocytes 9.3 % (1.7-9.3); % Neutrophils 74.7 % (42.2-75.2); Absolute Basophils 0.1 10^3/uL (0-0.2); Absolute Eosinophils 0.1 10^3/uL (0-0.7); Absolute Immature Granulocytes 0.1 10^3/uL (0-0.05); Absolute Lymphocytes 1.2 10^3/uL (1.2-3.4); Absolute Monocytes 0.9 10^3/uL (0.1-0.6); Absolute Neutrophils 6.8 10^3/uL (1.4-6.5); Hematocrit 43.2 % (39.0-52.0); Hemoglobin 14.6 g/dL (13.0-18.0); Mean Corp Hgb Conc. 33.8 g/dL (33.0-37.0); Mean Corpuscular Hgb 31.2 pg (27.0-31.0); Mean Corpuscular Volume 92.3 fL (80.0-94.0); Mean Platelet Volume 8.9 fL (7.4-10.4); Nucleated Red Blood Cells % 0 % (-); Platelet Count 195 10^3/uL (130-400); Red Blood Cell Count 4.68 10^6/uL (4.70-6.10); Red Cell Dist. Width 15.6 % (11.5-14.5); White Blood Cell Count 9.2 10^3/uL (4.8-10.8)
[2023-07-12 12:28] LABS: Blood Urea Nitrogen 13 mg/dl (9-20); Calcium 9.5 mg/dl (8.4-10.2); Carbon Dioxide 26 mmol/L (22-30); Chloride 104 mmol/L (98-107); Glucose 102 mg/dl (70-99); Sodium 136 mmol/L (135-145); eGFR > 60.00
[2023-07-12] MEDS: DUONEB 3 ML INH ×2 (13:41→14:51)
--- NOTE | 2023-07-12 14:35 | ED.GENMED ---
History of Present Illness
General
Chief Complaint: Breathing Problem
Time Seen by Provider: 07/12/23 11:53
Travel History
Have you had any contact with someone who has COVID-19?: No
Do you have any symptoms of coronavirus? Fever > 100 degrees, chills, cough, shortness of breath, sore throat, loss of taste or smell, muscle aches, or headache?: No
History of Present Illness
History of Present Illness:
73-year-old male with productive cough and shortness of breath for the past 5 days. Recent admission for pneumonia
Past History
Past History
ED Past Medical History: Hypothyroidism, Psychiatric (Depression, chronic anxiety) and Other (History of peripheral vascular disease, mitral valve prolapse, DVT to the right leg, ileus, abdominal pain, urinary tract infection, cellulitis)
ED Past Surgical History: Other (vascular surgery to the right leg for poor circulation, cervical spine fusion, exploratory surgery of the abdomen for pain and abdominal enlargement, Green field filter)
Patient has exhibited threatening behavior?: No
Social History
Tobacco: Non-smoker
Alcohol: None
Personal: Single
Living: other ([facility])
Employment: Not employed
Family History
Family History: Other (Noncontributory)
Phy Exam
Physical Exam
Physical Exam:
Physical Exam
General: Moderate respiratory distress, afebrile
Neck: supple. no meningeal signs. normal posterior pharynx
Heart: s1/s2 regular rate and rhythm, no murmur. equal radial
pulses.
HEENT: Pupils equal round reactive to light, EOMI
Lungs: Moderate respiratory distress. Wheezing and decreased breath sounds throughout bilaterally
Abdomen: normal bowel sounds. not tender. no CVAT
Neuro: alert and oriented. no focal neurological deficits cranial nerves II through XII intact
Skin: no rash
Psychiatric: well kept. interactive and cooperative
Extremities: no edema. no calf tenderness. negative homans. good distal pulses
Scores
Heart Failure Risk
Heart Failure Risk Score: Not Applicable
Course
Orders/Labs/Results
Orders:
Orders
07/12/23 11:40
Chest [CR Chest - 2 Views ] Urgent
Comment:
Reason For Exam: cough
07/12/23 11:52
Basic Metabolic Panel Urgent
CBC/With Diff [Complete Blood Count/With Diff] Urgent
07/12/23 13:30
Ipratropium/Albuterol Sulfate [Duoneb] 3 ml INH R NOW STA
07/12/23 14:31
Dexamethasone Sod Phosphate [Decadron] 10 mg IV NOW STA
Ipratropium/Albuterol Sulfate [Duoneb] 3 ml INH R NOW STA
Abnormal Lab Results
07/12/23
11:52
RBC 4.68 L 10^6/uL
(4.70-6.10)
MCH 31.2 H pg
(27.0-31.0)
RDW 15.6 H %
(11.5-14.5)
Abs Immat Gran (auto) 0.1 H 10^3/uL
(0-0.05)
Absolute Neuts (auto) 6.8 H 10^3/uL
(1.4-6.5)
Absolute Monos (auto) 0.9 H 10^3/uL
(0.1-0.6)
Immature Gran % 1.2 H %
(0-0.5)
Lymphocytes % 13.3 L %
(20.5-51.1)
Glucose 102 H mg/dl
(70-99)
07/12/23 11:52
07/12/23 11:52
Vital Signs
Initial and Last Documented VS:
Initial Vital Signs
Temp Pulse Resp BP Pulse Ox
98.5 F 109 24 122/88 92
03/29/24 10:26 07/12/23 10:26 07/12/23 10:26 07/12/23 10:26 07/12/23 10:26
Last Documented Vital Signs
Temp Pulse Resp BP Pulse Ox
98.5 F 93 16 126/87 98
07/12/23 10:26 07/12/23 14:00 07/12/23 14:00 07/12/23 14:00 07/12/23 14:00
MDM/Problems Addressed
Differential Diagnosis Includes:
Pneumonia, bronchospasm
MDM/Problems Addressed:
73-year-old male with bronchospastic bronchitis, no pneumonia seen on chest x-ray. Admit to hospitalist for further treatment.
Chronic conditions affecting care: Other (Prior pneumonia and bronchitis, PE, peripheral vascular disease)
Acute Exacerbation and/or Progression of Chronic Illness: Other (Prior pneumonia and bronchitis)
*Radiology
Radiology exam reviewed: radiology read reviewed (Chest x-ray no acute findings)
*Pulse Oximetry
Patient hypoxic: no
*EKG
Interpreted by ED Provider?: NA
*Looping Machine Operator Interpretation
Rate: Looping Machine Operator- N/A
*Critical Care Note
Total Time (30-74mins, 75-104mins- exclusive of procedures): Not Applicable
Data Reviewed
Review of Other/Old Records Reveals: Progress Notes (Recent hospitalization in May for pneumonia)
Source: records
Further Testing Considered But Not Given:
CT considered, not indicated at this time.
Patient Management
Social determinants of health affecting care: Living situation
Discussion with other providers: Hospitalist
Escalation/DeEscalation of care consider admission/obs:
Admit indicated
ED Attending Note
-
Portions of this chart may have been created with voice recognition software.� Occasional wrong word or��sound alike� substitutions may have occurred due to the inherent limitations of voice recognition software.
Discharge Plan
Departure
Patient Disposition: Admit
Date of Disposition: 07/12/23
Time of Disposition: 14:32
Admit to: Telemetry
Presentation/result/management discussed w/ accepting MD/DO: Hospitalist
Patient with high blood pressure during this ER visit?: Yes
Condition: Fair
Discharge Problem:
Acute bronchitis with bronchospasm
Prescriptions:
No Action
cyanocobalamin (vitamin B-12) 1,000 MCG tablet
1,000 mcg PO DAILY
melatonin 3 MG tablet
10 mg PO HS
tamsulosin 0.4 MG capsule
0.8 mg PO DAILY
cholecalciferol (vitamin D3) 1,000 UNITS tablet
1,000 units PO DAILY
gabapentin 100 MG capsule
100 mg PO HS 30 Days Qty: 30 0RF
fluvoxamine 100 mg Tablet
100 mg PO DAILY
fluvoxamine 50 mg Tablet
50 mg PO HS
Xarelto 20 mg Tablet
20 mg PO QPM
gabapentin 400 MG capsule
400 mg PO TID
aripiprazole 2 MG tablet
5 mg PO QPM
atorvastatin 40 mg Tablet
40 mg PO HS
pantoprazole 40 mg Tablet,Delayed Release (Dr/Ec)
40 mg PO DAILY
carbidopa-levodopa 25-100 mg Tablet
1 tab PO TID
clonazepam 0.5 MG tablet
0.5 mg PO HSPRN PRN (Reason: lack of sleep-only in 0.5mg x1 dose doesnot work)
quetiapine [Seroquel] 25 mg Tablet
50 mg PO HS
Rx Instructions:
take [id number] and 200mg for a total of 550mg
quetiapine [Seroquel] 300 mg Tablet
300 mg PO HS
Rx Instructions:
take with 50mg and 200mg for a total of 550mg
clonazepam 0.5 mg Tablet
0.5 mg PO HS
quetiapine [Seroquel] 200 mg Tablet
200 mg PO DAILY
Rx Instructions:
take with 300mg and 50mg for a total of 550mg
levothyroxine [Synthroid] 75 mcg Tablet
75 mcg PO DAILY
polyethylene glycol 3350 17 GRAMS powder in packet
17 grams PO DAILYPRN PRN (Reason: constipation)
prednisone 10 mg Tablet
See Rx Instructions .ROUTE .COMPLEX Qty: 45 0RF
Rx Instructions:
Take By Mouth:
50 mg daily x3 days, 40 mg daily x3 days,
30 mg daily x3 days, 20 mg daily x3 days,
10 mg daily x3 days
doxycycline hyclate 100 mg tablet
100 mg PO BID Qty: 24 0RF
Referrals:
Tenthoff,Vangie Monterroso MD [Family Provider] -
Interventions
Interventions:
*Risk Screen - Suicide Last Done: 07/12/23 10:26
*General Assessment Last Done: 07/12/23 10:26
ED- Fall Risk Assessment Last Done: 07/12/23 12:11
ED- Cardiac Assessment Last Done: 07/12/23 12:11
ED- Pulmonary Assessment Last Done: 07/12/23 12:11
Discharge Date and Time
Print Language: SYRIAC
[2023-07-12] MEDS: DECADRON 10 MG IV (14:52)
--- NOTE | 2023-07-12 16:15 | HPS.HSE ---
Family Physician
-
Family Physician: Vangie Patricia MD
Chief Complaint
-
sob
wheezing
cough
History of Present Illness
23-year-old with past medical history for hypothyroidism, depression, anxiety, peripheral vascular disease, mitral prolapse, right lower extremity DVT, ileus presented to us with cough and short of breath for 5 days. Patient stated cough with
greenish sputum. Short of breath even with mild exertion. Patient complained of chest pain from cough. Patient also complaining of headache. Patient stated fever of 99.8 at home. Yesterday he felt achy and chills all over. He took Tylenol with
no relief in symptoms. Patient denies any dizziness or syncopal episode. Patient denies any abdominal pain, nausea, vomiting, diarrhea. Patient denies any dysuria hematuria.
Chest x-ray with impression of Minimal streaky opacity within the lingular segment, unchanged, suggestive of scarring or subsegmental atelectasis within the lingula.
2. Linear opacity within the left midlung zone on prior x-ray has resolved.
Patient received a dose of dexamethasone and nebulizer treatment with relief in his symptoms in the ER. Admitting for further management
Medical History
Past Medical History
Past Medical History: Reports Other
Additional Past Medical History:
Hyperlipidemia
Nocturnal Hypoxia
Bipolar Disorder
Parkinson's Disease
Hypothyroidism
DVT/PE
Past Surgical History: Reports Other
Additional Past Surgical History:
Cervical Spine Fusion
Exploratory Abdominal Surgery
Social History
Tobacco: Non-smoker
Alcohol: None
Drug: None
Living: With Family
Family History
Family History: Not pertinent
Allergies / Home Medications
Allergies reflects when Allergies were last updated in [facility].
Home Medications with original date entered in [facility]
Allergy/Medication List:
Allergies
Allergy/AdvReac Type Severity Reaction Status Date / Time
azithromycin Allergy Rash Verified 02/11/24 09:52
[From Zithromax Z-Sp]
erythromycin base Allergy Unknown Verified 05/26/23 09:52
[Erythromycin Base]
lamotrigine [From Lamictal] Allergy Rash Verified 05/26/23 09:52
propranolol Allergy Rash Verified 05/26/23 09:52
venlafaxine [From Effexor] Allergy Rash Verified 05/26/23 09:52
warfarin sodium Allergy Rash Verified 05/26/23 09:52
[From Coumadin]
ziprasidone HCl [From Geodon] Allergy HEADACHES, Verified 05/26/23 09:52
'FELT
WEIRD'
ziprasidone mesylate Allergy HEADACHES, Verified 05/26/23 09:52
[From Geodon] 'FELT
WEIRD'
Home Medications
cholecalciferol (vitamin D3) 25 mcg (1,000 unit) tablet 1,000 units PO DAILY Supplement 03/09/18
cyanocobalamin (vitamin B-12) 1,000 mcg tablet 1,000 mcg PO DAILY Supplement 03/09/18
tamsulosin 0.4 mg capsule 0.8 mg PO DAILY Urinary Issue 03/09/18
gabapentin 100 mg capsule 100 mg PO HS 30 days #30 caps 03/12/18
fluvoxamine 100 mg tablet 100 mg PO DAILY Mental Health/Anxiety 01/19/20
fluvoxamine 50 mg tablet 50 mg PO HS Mental Health/Anxiety 01/19/20
gabapentin 400 mg capsule 400 mg PO TID Neurological Condition 01/19/20
rivaroxaban 20 mg tablet (Xarelto) 20 mg PO QPM Blood Clot Prevention/Tx 01/19/20
atorvastatin 40 mg tablet 40 mg PO HS High Cholesterol 05/26/23
carbidopa 25 mg-levodopa 100 mg tablet 1 tab PO BID Neurological Condition 05/26/23
clonazepam 0.5 mg tablet 0.5 mg PO HS Mental Health/Anxiety 05/26/23
levothyroxine 75 mcg tablet (Synthroid) 75 mcg PO DAILY Thyroid 05/26/23
pantoprazole 40 mg tablet,delayed release 40 mg PO DAILY Gastrointestinal Issue 05/26/23
polyethylene glycol 3350 17 gram oral powder packet 17 grams PO DAILY Constipation 05/26/23
quetiapine 200 mg tablet (Seroquel) 200 mg PO HS Mental Health/Anxiety 05/26/23
quetiapine 25 mg tablet (Seroquel) 50 mg PO HS Mental Health/Anxiety 05/26/23
quetiapine 300 mg tablet (Seroquel) 300 mg PO HS Mental Health/Anxiety 05/26/23
acetaminophen 500 mg tablet (Tylenol Extra Strength) 500 mg PO BIDPRN PRN mild pain 07/12/23
aripiprazole 5 mg tablet 5 mg PO QPM 07/12/23
melatonin 5 mg tablet 10 mg PO HS Sleep 07/12/23
Review of Systems
-
Constitutional: Reports Fever, Fatigue and Chills
EENT: Reports No Symptoms
Respiratory: Reports Cough and Trouble Breathing
Cardiac: Reports No Symptoms
Abdomen/GI: Reports No Symptoms
: Reports No Symptoms
Musculoskeletal: Reports No Symptoms
Skin: Reports No Symptoms
Neurological: Reports Headache and Weakness
Endocrine: Reports No Symptoms
Hematologic/Lymphatic: Reports No Symptoms
Psych: Reports No Symptoms
Physical Exam
Vital Signs
Vital Signs
Temp Pulse Resp BP Pulse Ox
98.5 F 93 16 126/87 98
07/12/23 10:26 07/12/23 14:00 07/12/23 14:00 07/12/23 14:00 07/12/23 14:00
Physical Exam
General: Well Developed, Well Nourished and No Apparent Distress
HEENT: NormoCephalic, Moist mucous membranes and Atraumatic
Respiratory: Wheezes and Rales
Cardiac: S1/S2 and Regular Rhythm; No Murmur or Rub
GI: Soft, Non Tender, Non Distended and Normal Bowel Sounds; No Organomegaly
Rectal: Deferred by Provider
Musculoskeletal: No Clubbing, No Cyanosis and No Edema
Skin: No Rash
Neuro: AO x 3 and Nonfocal/grossly intact
Psych: Calm
Laboratory Results
-
07/12/23 11:52
07/12/23 11:52
Laboratory Results
Total Bilirubin Cancelled 07/12/23 11:52
AST Cancelled 07/12/23 11:52
ALT Cancelled 07/12/23 11:52
Alkaline Phosphatase Cancelled 07/12/23 11:52
Data Reviewed
-
Diagnostic Radiology: Report Reviewed by me
Lab Data: Labs Reviewed by me
Impression/Plan
-
#bronchospasm/dyspnea/wheezing likely bronchitis
-chest x ray with Minimal streaky opacity within the lingular segment, unchanged, suggestive of scarring or subsegmental atelectasis within the lingula. Linear opacity within the left midlung zone on prior x-ray has resolved.
-IV Decadron 4 mg daily
-Mucinex for cough
-Tylenol for fever
-Nebs as needed for short of breath and wheezing
-Obtain COVID and flu
#Chronic Nocturnal Hypoxia
-will need to f/u with pulmonology
-Patient uses supplemental oxygen at nighttime
constipation -- miralax and stool softener--Milk of molasses enema not needed
#Hyperlipidemia-Continue Atorvastatin
#Bipolar Disorder-Continue Abilify, Clonazepam, Fluvoxamine and Seroquel (takes all 550mg at night at once)
#Parkinson's Disease-Continue carbidopa/levodopa
#Hypothyroidism-Continue levothyroxine
#GERD-Continue Protonix
#BPH/Chronic Urinary Retention-Continue tamsulosin-Patient straight caths twice a day
#DVT/PE s/p IVC Filter-Continue Xarelto
#Code Status: Full Code
[2023-07-12 17:01] LABS: COVID-19 Antigen Negative (Negative)
[2023-07-12] MEDS: XARELTO 20 MG PO (18:24)
[2023-07-12] MEDS: ABILIFY 5 MG PO (18:25)
[2023-07-12] MEDS: MUCINEX 1200 MG PO (19:08)
[2023-07-12] MEDS: SINEMET 25-100 1 TABLET PO (19:08)
--- NOTE | 2023-07-12 19:14 | W.PN.UPDATE ---
Update Note
Progress Note Update
This note serves as an addendum to the H&P by BRENNA Jang, on July 12, 2023.
73-year-old with past medical history for hypothyroidism, depression, anxiety, peripheral vascular disease, mitral prolapse, right lower extremity DVT, ileus presented with cough and short of breath for 5 days. Patient stated cough with greenish
sputum. He had been having shortness of breath even with mild exertion. Patient had been feeling achy and chills all over.
Vital Signs
Mild tachycardia but otherwise stable
Physical Exam
General: Well Developed, Well Nourished and No Apparent Distress
HEENT: NormoCephalic, Moist mucous membranes and Atraumatic
Respiratory: Wheezes
Cardiac: S1/S2 and Regular Rhythm
GI: Soft, Non Tender, Non Distended and Normal Bowel Sounds
Musculoskeletal: No Cyanosis and No Edema
Skin: Warm. Dry.
Neuro: AO x 3 and Nonfocal/grossly intact
Psych: Calm
Assessment/Plan
#bronchospasm/dyspnea/wheezing likely bronchitis
#Recent MRSA growing in sputum culture
#Recent sepsis due to community acquired pneumonia from methicillin-resistant Staphylococcus aureus
-chest x ray as per radiologist's report with Minimal streaky opacity within the lingular segment, unchanged, suggestive of scarring or subsegmental atelectasis within the lingula. Linear opacity within the left midlung zone on prior x-ray has
resolved.
-IV Decadron 4 mg daily
-Mucinex for cough
-Tylenol for fever
-Nebs as needed for short of breath and wheezing
-Influenza A positive
-Doxycycline
-Tamiflu
#Chronic Nocturnal Hypoxia
-will need to f/u with pulmonology
-Patient uses supplemental oxygen at nighttime
constipation -- miralax and stool softener--Milk of molasses enema not needed
#Hyperlipidemia-Continue Atorvastatin
#Bipolar Disorder-Continue Abilify, Clonazepam, Fluvoxamine and Seroquel (takes all 550mg at night at once)
#Parkinson's Disease-Continue carbidopa/levodopa
#Hypothyroidism-Continue levothyroxine
#GERD-Continue Protonix
#BPH/Chronic Urinary Retention-Continue tamsulosin-Patient straight caths twice a day
Chronic nocturnal hypoxia
Hyperlipidemia
Bipolar disorder
Parkinson's disease
Hypothyroidism
Gastroesophageal reflux disease
Benign prostatic hyperplasia
Chronic urinary retention
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
#DVT/PE s/p IVC Filter-Continue Xarelto
#Code Status: Full Code
[2023-07-12 19:55] LABS: Blood Urea Nitrogen 14 mg/dl (9-20); Calcium 9.4 mg/dl (8.4-10.2); Carbon Dioxide 28 mmol/L (22-30); Chloride 102 mmol/L (98-107); Estimated Creatinine Clearance 62 ml/min; Glucose 205 mg/dl (70-99); Magnesium 1.8 mg/dl (1.6-2.3); Potassium 4.7 mmol/L (3.5-5.1); Sodium 137 mmol/L (135-145); eGFR 58.01
[2023-07-12] MEDS: VIBRAMYCIN 100 MG PO (21:13)
[2023-07-12] MEDS: SEROQUEL 550 MG PO (21:13)
[2023-07-12] MEDS: MELATONIN 10 MG PO (21:14)
[2023-07-12] MEDS: TAMIFLU 75 MG PO (21:15)
[2023-07-12] MEDS: KLONOPIN 0.5 MG PO (21:15)
[2023-07-12] MEDS: LUVOX 50 MG PO (21:15)
[2023-07-12] MEDS: NEURONTIN 100 MG PO (21:15)
[2023-07-12] MEDS: LIPITOR 40 MG PO (21:15)
[2023-07-12] MEDS: NEURONTIN 400 MG PO (21:15)
[2023-07-13] MEDS: SYNTHROID 75 MCG PO (06:06)
[2023-07-13 07:05] VITALS: BP 134/86
[2023-07-13] MEDS: NEURONTIN 400 MG PO ×3 (07:47→22:27)
[2023-07-13] MEDS: MUCINEX 1200 MG PO ×2 (07:47→20:24)
[2023-07-13] MEDS: TAMIFLU 75 MG PO ×2 (07:47→20:22)
[2023-07-13] MEDS: FLOMAX 0.800000000000000044 MG PO (07:47)
[2023-07-13] MEDS: VIBRAMYCIN 100 MG PO ×2 (07:48→20:24)
[2023-07-13] MEDS: SINEMET 25-100 1 TABLET PO ×2 (07:50→20:23)
[2023-07-13] MEDS: VITAMIN D3 (cholecalciferol) 25 MCG PO (07:51)
[2023-07-13] MEDS: PROTONIX 40 MG PO (07:51)
[2023-07-13] MEDS: LUVOX 100 MG PO (07:51)
[2023-07-13] MEDS: VITAMIN B-12 1000 MCG PO (07:52)
[2023-07-13] MEDS: MIRALAX 17 GRAMS PO (07:52)
[2023-07-13] MEDS: DECADRON 4 MG IV (08:16)
[2023-07-13 08:48] LABS: Hematocrit 43.5 % (39.0-52.0); Hemoglobin 14.3 g/dL (13.0-18.0); Mean Corp Hgb Conc. 32.9 g/dL (33.0-37.0); Mean Corpuscular Hgb 30.5 pg (27.0-31.0); Mean Corpuscular Volume 92.8 fL (80.0-94.0); Mean Platelet Volume 9.2 fL (7.4-10.4); Platelet Count 217 10^3/uL (130-400); Red Blood Cell Count 4.69 10^6/uL (4.70-6.10); Red Cell Dist. Width 15.2 % (11.5-14.5); White Blood Cell Count 12.5 10^3/uL (4.8-10.8)
[2023-07-13 09:08] LABS: Blood Urea Nitrogen 21 mg/dl (9-20); Calcium 9.9 mg/dl (8.4-10.2); Carbon Dioxide 26 mmol/L (22-30); Chloride 101 mmol/L (98-107); Estimated Creatinine Clearance 73 ml/min; Glucose 131 mg/dl (70-99); Potassium 4.9 mmol/L (3.5-5.1); Sodium 138 mmol/L (135-145); eGFR > 60.00
--- NOTE | 2023-07-13 13:04 | W.PN.UPDATE ---
Update Note
Progress Note Update
Psychiatric evaluation dictated.
Patient reports significant anxiety, states the reason relates to him having several hospitalizations for various medical problems. He is on quite a cocktail of different psychotropic medications including Abilify, Seroquel, Gabapentin and Klonopin.
He has been stable on this combination since 2017, prior to that he was hospitalized several times in psychiatric hospitals for mood instability and suicidal thoughts although he denies suicide attempts.
Presently he denies johanne swings, helplessness, hopelessness or suicidal thoughts. He is cognitively intact.
At this point I would not change his psychotropic regime as he reports it is working for him and he has not been psychiatrically hospitalized recently even though it is questionable as to being on 2 different antipsychotics.
I will order extra dose of Klonopin one time only.
Will F/U through department.
[2023-07-13] MEDS: KLONOPIN 0.5 MG PO ×2 (13:23→22:25)
--- NOTE | 2023-07-13 14:34 | W.PN.HOSP.TC ---
Today's Communication/Plan
-
Consulted pulm, patient still with significant cough and SOB
Continue Tamiflu and Doxycycline
Anticipate discharge tomorrow if okay with pulm
Assessment / Plan
Assessment / Plan
Physical Exam
General: Well Developed, Well Nourished and No Apparent Distress
HEENT: Normocephalic, Moist mucous membranes and Atraumatic
Respiratory: Wheezes
Cardiac: S1/S2 and Regular Rhythm
GI: Soft, Non Tender, Non Distended and Normal Bowel Sounds
Musculoskeletal: No Cyanosis and No Edema
Skin: Warm. Dry.
Neuro: AO x 3 and Nonfocal/grossly intact
Psych: Calm
Assessment/Plan
#bronchospasm/dyspnea/wheezing likely bronchitis
#Recent MRSA growing in sputum culture
#Recent sepsis due to community acquired pneumonia from methicillin-resistant Staphylococcus aureus
-chest x ray as per radiologist's report with Minimal streaky opacity within the lingular segment, unchanged, suggestive of scarring or subsegmental atelectasis within the lingula. Linear opacity within the left midlung zone on prior x-ray has
resolved.
-IV Decadron 4 mg daily
-Mucinex for cough
-Tylenol for fever
-Nebs as needed for short of breath and wheezing
-Influenza A positive
-Doxycycline
-Tamiflu
-Consulted pulmonary given recent hospitalization with MRSA and pneumonia failing outpatient treatement
#Chronic Nocturnal Hypoxia
-will need to f/u with pulmonology
-Patient uses supplemental oxygen at nighttime
constipation -- miralax and stool softener--Milk of molasses enema not needed
#Hyperlipidemia-Continue Atorvastatin
#Bipolar Disorder-Continue Abilify, Clonazepam, Fluvoxamine and Seroquel (takes all 550mg at night at once)
#Parkinson's Disease-Continue carbidopa/levodopa
#Hypothyroidism-Continue levothyroxine
#GERD-Continue Protonix
#BPH/Chronic Urinary Retention-Continue tamsulosin-Patient straight caths twice a day
Chronic nocturnal hypoxia
Hyperlipidemia
Bipolar disorder
Parkinson's disease
Hypothyroidism
Gastroesophageal reflux disease
Benign prostatic hyperplasia
Chronic urinary retention
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
#DVT/PE s/p IVC Filter-Continue Xarelto
#Code Status: Full Code
Anticipated Discharge: 24 - 48 hours
Subjective/Interval History
-
Date of Service: July 13, 2023
Patient was seen and examined. He reported anxiety, he is still coughing and short of breath, overall not feeling too good still.
Objective Data
-
Labs:
Laboratory Results
07/13/23
08:09
WBC 12.5 H
Hgb 14.3
Hct 43.5
Plt Count 217
Sodium 138
Potassium 4.9
Chloride 101
Carbon Dioxide 26
BUN 21 H
Creatinine 1.1
Glucose 131 H
Calcium 9.9
Vital Signs:
Vital Signs
Temp Pulse Resp BP Pulse Ox
98 F 87 18 134/86 92
07/13/23 07:05 07/13/23 07:05 07/13/23 07:05 07/13/23 07:05 07/13/23 08:00
[2023-07-13 15:10] VITALS: BP 136/100
--- NOTE | 2023-07-13 15:28 | CON.PUL ---
Consultation
Consultation Request
Date/Time Consultation Requested: 07/13/2023 - 1433
Date/Time Consultation Performed: 07/13/2023 - 145
Requesting Provider: Dr. Genao
Performing Provider: Dr. Anna
Reason for Consultation: SOB
Medical History
-
Chief Complaint: Shortness of breath
History of Present Illness:
73-year-old male with a past medical history of chronic nocturnal hypoxia on 3 L/min nasal cannula, Parkinson's disease, history of DVT/PE on Xarelto, hyperlipidemia and hypothyroidism who presents with productive cough and shortness of breath since
Saturday. Patient says that he was with his son on Saturday to return a [place], when his son started to feel feverish and achy with general malaise. The patient then developed achiness, cough with green phlegm production that Saturday. This then
developed into shortness of breath and that is why came into the hospital. Of note he was recently hospitalized here from 05/26ue to MRSA pneumonia with failed outpatient treatment. He was discharged home on 06/04/2023. Currently, he
is testing positive for influenza A. Chest x-ray shows scarring/subsegmental atelectasis within the lingula. He was started on Tamiflu as well as Decadron and then admitted to the hospitalist service. Pulmonary now consulted for additional
management/recommendations.
When I saw the patient he was on room air breathing comfortably. He says that his shortness breath is better. He continues to wear oxygen at night with sleep. He currently denies headache, chest pain, abdominal pain, diarrhea, fevers or chills.
PMHx: HLD, DVT/PE on Xarelto, BPH w/ chronic urinary retention, obesity, hypothyroidism, Nocturnal Hypoxia on 3L NC (sleep study neg for OSAS), Bipolar Disorder, and Parkinson's Disease
PSHx: Deviated septum surgery, cervical spine fusion, exploratory surgery for abdomen for pain and abdominal enlargement, right lower leg vascular surgery
Past Medical History
Past Medical History: Other (Above as per HPI)
Past Surgical History: Other (Above as per HPI)
Social History
Tobacco: Non-smoker
Alcohol: None
Drug: None
Family History
Family History: Reviewed & Not Pertinent
Allergies / Home Medications
Allergies
Allergy/AdvReac Type Severity Reaction Status Date / Time
azithromycin Allergy Rash Verified 05/26/23 09:52
[From Zithromax Z-Sp]
erythromycin base Allergy Unknown Verified 05/26/23 09:52
[Erythromycin Base]
lamotrigine [From Lamictal] Allergy Rash Verified 05/26/23 09:52
propranolol Allergy Rash Verified 05/26/23 09:52
venlafaxine [From Effexor] Allergy Rash Verified 05/26/23 09:52
warfarin sodium Allergy Rash Verified 05/26/23 09:52
[From Coumadin]
ziprasidone HCl [From Geodon] Allergy HEADACHES, Verified 05/26/23 09:52
'FELT
WEIRD'
ziprasidone mesylate Allergy HEADACHES, Verified 05/26/23 09:52
[From Geodon] 'FELT
WEIRD'
Home Medications
�Medication �Instructions �Recorded �Confirmed �Last Taken �Type
cholecalciferol (vitamin D3) 25 1,000 units PO DAILY Supplement 03/09/18 07/12/23 07/12/23 History
mcg (1,000 unit) tablet
cyanocobalamin (vitamin B-12) 1,000 mcg PO DAILY Supplement 03/09/18 07/12/23 07/12/23 History
1,000 mcg tablet
tamsulosin 0.4 mg capsule 0.8 mg PO DAILY Urinary Issue 03/09/18 07/12/23 07/12/23 History
gabapentin 100 mg capsule 100 mg PO HS 30 days #30 caps 03/12/18 07/12/23 07/11/23 Rx
fluvoxamine 100 mg tablet 100 mg PO DAILY Mental 01/19/20 07/12/23 07/12/23 History
Health/Anxiety
fluvoxamine 50 mg tablet 50 mg PO HS Mental Health/Anxiety 01/19/20 07/12/23 07/11/23 History
gabapentin 400 mg capsule 400 mg PO TID Neurological 01/19/20 07/12/23 07/12/23 History
Condition
rivaroxaban 20 mg tablet (Xarelto) 20 mg PO QPM Blood Clot 01/19/20 07/12/23 07/11/23 17:00 History
Prevention/Tx
atorvastatin 40 mg tablet 40 mg PO HS High Cholesterol 05/26/23 07/12/23 07/11/23 History
carbidopa 25 mg-levodopa 100 mg 1 tab PO BID Neurological Condition 05/26/23 07/12/23 07/12/23 History
tablet
clonazepam 0.5 mg tablet 0.5 mg PO HS Mental Health/Anxiety 05/26/23 07/12/23 07/11/23 History
levothyroxine 75 mcg tablet 75 mcg PO DAILY Thyroid 05/26/23 07/12/23 07/12/23 History
(Synthroid)
pantoprazole 40 mg tablet,delayed 40 mg PO DAILY Gastrointestinal 05/26/23 07/12/23 07/12/23 History
release Issue
polyethylene glycol 3350 17 gram 17 grams PO DAILY Constipation 05/26/23 07/12/23 07/12/23 History
oral powder packet
quetiapine 200 mg tablet (Seroquel) 200 mg PO HS Mental Health/Anxiety 05/26/23 07/12/23 07/11/23 History
quetiapine 25 mg tablet (Seroquel) 50 mg PO HS Mental Health/Anxiety 05/26/23 07/12/23 07/11/23 History
quetiapine 300 mg tablet (Seroquel) 300 mg PO HS Mental Health/Anxiety 05/26/23 07/12/23 07/11/23 History
acetaminophen 500 mg tablet 500 mg PO BIDPRN PRN mild pain 07/12/23 07/12/23 Unknown History
(Tylenol Extra Strength)
aripiprazole 5 mg tablet 5 mg PO QPM 07/12/23 07/12/23 07/11/23 History
melatonin 5 mg tablet 10 mg PO HS Sleep 07/12/23 07/12/23 07/11/23 History
Review of Systems
-
History Source: Patient
All other systems: Negative unless noted (12 point ROS performed and is negative unless mentioned above.)
Vitals / Labs / Diagnostic Testing
Vital Signs
Temp Pulse Resp BP Pulse Ox
97.8 F 104 18 136/100 91
07/13/23 15:10 07/13/23 15:10 07/13/23 15:10 07/13/23 15:10 07/13/23 15:10
Lab Data
07/13/23 08:09
07/13/23 08:09
Microbiology
07/12/23 16:33 Nasal Swab Influenza Types A & B (JAYLAN) - Final
Influenza A Positive, NAAT
Diagnostic Testing:
Physical Exam
-
HEENT: Normocephalic and Anicteric
Cardiovascular: S1/S2
Respiratory: Wheeze (Negative), Rales (Negative), Rhonchi ([place] during expiration bilaterally) and Accessory Resp Muscle Use (Negative)
GI: Soft, Non Tender, Normal Bowel Sounds and Other (Abdominal obesity)
Neurology: Awake and Alert
Skin: Warm and Dry
General: Comfortable
Assessment
-
Assessment: 73-year-old male with a past medical history of chronic nocturnal hypoxia on 3 L/min nasal cannula, Parkinson's disease, history of DVT/PE on Xarelto, hyperlipidemia and hypothyroidism who presents with productive cough and shortness of
breath since Saturday. Patient says that he was with his son on Saturday to return a [place], when his son started to feel feverish and achy with general malaise. The patient then developed achiness, cough with green phlegm production that Saturday.
This then developed into shortness of breath and that is why came into the hospital. Of note he was recently hospitalized here from 05/26ue to MRSA pneumonia with failed outpatient treatment. He was discharged home on 06/04/2023.
Currently, he is testing positive for influenza A. Chest x-ray shows scarring/subsegmental atelectasis within the lingula. He was started on Tamiflu as well as Decadron and then admitted to the hospitalist service. Pulmonary now consulted for
additional management/recommendations.
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
Impression:
#Influenza A pneumonia
#Acute respiratory failure with hypoxemia due to above
#Leukocytosis � reactive due to above
#Hyperglycemia
#Chronic nocturnal hypoxia on O2 with sleep
#Obesity (BMI: 32.1)
Plan:
- Continue Tamiflu
- Continue with nocturnal oxygen and during the day maintain SpO2 >90-94%
- Would check an ambulatory pulse ox prior to discharge
- Continue with systemic steroids with Decadron -currently on 4 mg IV daily --> if patient continues to improve then he can be transition to p.o. prednisone starting at 40 mg and reduce by 10 mg every third day until off
- Maintain MAP >65
- Replete electrolytes with K >3.5, Mg >1.8
- Encourage patient to get up OOB as tolerated
- Check sputum culture
- As needed nebulized bronchodilators - patient not currently bronchospastic
- Encourage incentive spirometer
- stress ulcer ppx: N/A
- DVT ppx
Pulmonary service will continue to follow along and I will arrange for outpatient office follow-up after discharge.
Total time spent today was 55 minutes for this encounter. Time includes reviewing laboratory test/imaging results, reviewing pertinent medical records, obtaining and reviewing medical history, performing an appropriate exam, ordering medications,
tests and procedures. Time also includes documentation of this encounter, coordinating patient care and communicating with other healthcare professionals. Total time does not include separately billed tests performed on this date of service.
Data:
CXR 07-12-2023:
1. Minimal streaky opacity within the lingular segment, unchanged, suggestive of scarring or subsegmental atelectasis within the lingula.
2. Linear opacity within the left midlung zone on prior x-ray has resolved.
--- NOTE | 2023-07-13 16:10 | CM ---
remote encoding center manager reviewed patient's chart and met with patient and patient lives with his son in a multilevel building with an elevator, patient is independent with adl's and ambulation. Patient has a prescription plan and patient uses [facility].
PCP: Vangie Patricia
Plan; Home with son when stable.
[2023-07-13] MEDS: XARELTO 20 MG PO (17:55)
[2023-07-13] MEDS: ABILIFY 5 MG PO (17:55)
[2023-07-13 22:23] VITALS: BP 141/101
[2023-07-13] MEDS: LIPITOR 40 MG PO (22:25)
[2023-07-13] MEDS: LUVOX 50 MG PO (22:25)
[2023-07-13] MEDS: MELATONIN 10 MG PO (22:25)
[2023-07-13] MEDS: SEROQUEL 550 MG PO (22:26)
[2023-07-13] MEDS: NEURONTIN 100 MG PO (22:27)
[2023-07-14] MEDS: SYNTHROID 75 MCG PO (05:54)
[2023-07-14 07:05] VITALS: BP 115/89
[2023-07-14 08:50] LABS: Hematocrit 39.8 % (39.0-52.0); Mean Corp Hgb Conc. 35.2 g/dL (33.0-37.0); Mean Corpuscular Hgb 31.3 pg (27.0-31.0); Mean Platelet Volume 9.2 fL (7.4-10.4); Platelet Count 218 10^3/uL (130-400); Red Blood Cell Count 4.47 10^6/uL (4.70-6.10); Red Cell Dist. Width 15.4 % (11.5-14.5)
[2023-07-14] MEDS: DECADRON IV (09:08)
[2023-07-14] MEDS: MIRALAX 17 GRAMS PO (09:09)
[2023-07-14] MEDS: FLOMAX 0.800000000000000044 MG PO (09:09)
[2023-07-14] MEDS: MUCINEX 1200 MG PO (09:10)
[2023-07-14] MEDS: VIBRAMYCIN 100 MG PO (09:10)
[2023-07-14] MEDS: DELTASONE 40 MG PO (09:11)
[2023-07-14] MEDS: PROTONIX 40 MG PO (09:11)
[2023-07-14] MEDS: NEURONTIN 400 MG PO ×2 (09:11→17:33)
[2023-07-14] MEDS: LUVOX 100 MG PO (09:11)
[2023-07-14] MEDS: VITAMIN B-12 1000 MCG PO (09:12)
[2023-07-14] MEDS: TAMIFLU 75 MG PO (09:12)
[2023-07-14] MEDS: SINEMET 25-100 1 TABLET PO (09:12)
[2023-07-14] MEDS: VITAMIN D3 (cholecalciferol) 25 MCG PO (09:13)
[2023-07-14 09:14] LABS: Blood Urea Nitrogen 28 mg/dl (9-20); Calcium 9.4 mg/dl (8.4-10.2); Carbon Dioxide 21 mmol/L (22-30); Chloride 106 mmol/L (98-107); Estimated Creatinine Clearance 73 ml/min; Glucose 97 mg/dl (70-99); Sodium 135 mmol/L (135-145); eGFR > 60.00
[2023-07-14 09:20] LABS: Potassium 4.6 mmol/L (3.5-5.1)
--- NOTE | 2023-07-14 09:25 | W.PN.PUL3 ---
Today's Communication / Plan
-
Steroid taper
Continue nocturnal oxygen and I will discuss with him in office about doing a NOX study to assess his continued need for O2 with sleep
Tamiflu
Doxycycline
Patient is being prepared for discharge home. I will arrange for outpatient follow-up with me in the office. Pulmonary service will now sign off. Please reconsult if there are any additional questions/concerns, or if patient's respiratory status
deteriorates.
Assessment
-
Assessment: 73-year-old male with a past medical history of chronic nocturnal hypoxia on 3 L/min nasal cannula, Parkinson's disease, history of DVT/PE on Xarelto, hyperlipidemia and hypothyroidism who presents with productive cough and shortness of
breath since Saturday. Patient says that he was with his son on Saturday to return a [place], when his son started to feel feverish and achy with general malaise. The patient then developed achiness, cough with green phlegm production that Saturday.
This then developed into shortness of breath and that is why came into the hospital. Of note he was recently hospitalized here from 05/26ue to MRSA pneumonia with failed outpatient treatment. He was discharged home on 06/04/2023.
Currently, he is testing positive for influenza A. Chest x-ray shows scarring/subsegmental atelectasis within the lingula. He was started on Tamiflu as well as Decadron and then admitted to the hospitalist service. Pulmonary now consulted for
additional management/recommendations.
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
Impression:
#Influenza A pneumonia
#Acute respiratory failure with hypoxemia due to above
#Leukocytosis � reactive due to above in the setting of systemic steroids
#Hyperglycemia � improved
#Chronic nocturnal hypoxia on O2 with sleep
#Obesity (BMI: 32.1)
Plan:
- Continue Tamiflu
- Continue with nocturnal oxygen and during the day maintain SpO2 >90-94%
- Home O2 assessment shows that he does not need home oxygen with harley SpO2 89%, and recovery of O2 saturation to 94% with rest
- Continue with systemic steroids with Decadron -currently on 4 mg IV daily --> transition to PO prednisone starting at 40 mg and reduce by 10 mg every third day until off
- Maintain MAP >65
- Replete electrolytes with K >3.5, Mg >1.8
- Encourage patient to get up OOB as tolerated
- Sputum culture checked on 07-13-2023 --> Gram stain shows WBC with GPR and moderate GPC; culture pending
- Continue prn nebulized bronchodilators - patient not currently bronchospastic
- Encourage incentive spirometer
- stress ulcer ppx: N/A
- DVT ppx
Patient is being prepared for discharge home. I will arrange for outpatient follow-up with me in the office. Pulmonary service will now sign off. Thank you for allowing us to be involved in the care of this patient. Please reconsult if there are
any additional questions/concerns, or if patient's respiratory status deteriorates.
Total time spent today was 25 minutes for this encounter. Time includes reviewing laboratory test/imaging results, reviewing pertinent medical records, obtaining and reviewing medical history, performing an appropriate exam, ordering medications,
tests and procedures. Time also includes documentation of this encounter, coordinating patient care and communicating with other healthcare professionals. Total time does not include separately billed tests performed on this date of service.
Data:
CXR 07-12-2023:
1. Minimal streaky opacity within the lingular segment, unchanged, suggestive of scarring or subsegmental atelectasis within the lingula.
2. Linear opacity within the left midlung zone on prior x-ray has resolved.
Subjective Data
-
Date of Service:
Date of Service: July 14, 2023
Chief Complaint: Pulmonary Follow Up
Subjective:
Patient seen this morning. Resting on room air saturating 94%. O2 home assessment performed by respiratory therapy, and SpO2 on room air at rest was 96%, and SpO2 on room air during ambulation dropped to a harley of 89% after walking 90 feet.
Patient recovered to SpO2 94% with rest after walking. He is eager to go home. He denies any overnight events. Currently denies abdominal bloating, headache, chest pain, fevers or chills.
Review of Systems
General: Other (12 point ROS performed and is negative unless mentioned above.)
Objective Data
Data Reviewed
Vital Signs / I&O / Oxygen:
Vital Signs
Temp Pulse Resp BP Pulse Ox
97.8 F 94 18 115/89 90
07/14/23 07:05 07/14/23 07:05 07/14/23 07:05 07/14/23 07:05 07/14/23 07:05
Intake and Output
07/13/23 07/14/23 07/15/23
06:59 06:59 06:59
Intake Total 1380 / 1380
Balance 1380 / 1380
SaO2 90
Physical Exam
General: Respiratory Distress (negative) and Comfortable
HEENT: Normocephalic and Anicteric
Cardiovascular: S1-S2 and Peripheral Edema (negative)
Respiratory: Wheeze (negative), Crackles (negative) and Rhonchi (Occasionally heard during expiration bilaterally)
GI: Soft, Non Distended, Non Tender and Normal Bowel Sounds
Neurology: Awake, Alert and Oriented
Skin: Warm and Dry
Labs/Micro/Reports
Lab Data
07/14/23 07:31
Microbiology
07/12/23 16:33 Nasal Swab Influenza Types A & B (JAYLAN) - Final
Influenza A Positive, NAAT
--- NOTE | 2023-07-14 13:52 | W.PN.HOSP.TC ---
Today's Communication/Plan
-
Discharge today
Assessment / Plan
Assessment / Plan
Physical Exam
General: Well Developed, Well Nourished and No Apparent Distress
HEENT: Normocephalic, Moist mucous membranes and Atraumatic
Respiratory: Wheezes - IMPROVED
Cardiac: S1/S2 and Regular Rhythm
GI: Soft, Non Tender, Non Distended and Normal Bowel Sounds
Musculoskeletal: No Cyanosis and No Edema
Skin: Warm. Dry.
Neuro: AAO x 3 and Nonfocal/grossly intact
Psych: Calm
Assessment/Plan
#Bronchospasm/dyspnea/wheezing likely bronchitis
#Atelectasis
#Recent MRSA growing in sputum culture
#Recent sepsis due to community acquired pneumonia from methicillin-resistant Staphylococcus aureus
-Chest x ray as per radiologist's report with Minimal streaky opacity within the lingular segment, unchanged, suggestive of scarring or subsegmental atelectasis within the lingula. Linear opacity within the left midlung zone on prior x-ray has
resolved.
-Prednisone taper outpatient: 40 mg x 1 more day THEN 30 mg x 2 days THEN 20 mg x 2 days THEN 10 mg x 2 days THEN off
-Mucinex for cough
-Tylenol for fever
-Nebs as needed for short of breath and wheezing
-Influenza A positive
-Doxycycline 100 mg BID x 6 more doses
-Tamiflu 75 mg BID x 6 more doses
-Consulted pulmonary given recent hospitalization with MRSA and pneumonia failing outpatient treatement
#Chronic Nocturnal Hypoxia
-Will need to follow-up with pulmonology
-Patient uses supplemental oxygen at nighttime
constipation -- miralax and stool softener--Milk of molasses enema not needed
#Hyperlipidemia-Continue Atorvastatin
#Bipolar Disorder-Continue Abilify, Clonazepam, Fluvoxamine and Seroquel (takes all 550mg at night at once)
#Parkinson's Disease-Continue carbidopa/levodopa
#Hypothyroidism-Continue levothyroxine
#GERD-Continue Protonix
#BPH/Chronic Urinary Retention-Continue tamsulosin-Patient straight caths twice a day
Chronic nocturnal hypoxia
Hyperlipidemia
Bipolar disorder
Parkinson's disease
Hypothyroidism
Gastroesophageal reflux disease
Benign prostatic hyperplasia
Chronic urinary retention
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
#DVT/PE s/p IVC Filter-Continue Xarelto
#Code Status: Full Code
More than 30 minutes spent in discharge including
Final examination of the patient
Summarizing hospital stay
Instructions for continuing care to all relevant caregivers
Preparation of discharge records, prescriptions, and referral forms
Total time spent (in minutes): 40
Anticipated Discharge: Today
Subjective/Interval History
-
Date of Service: July 14, 2023
Patient was seen and examined. He reported overall he feels better, less short of breath and less cough.
Objective Data
-
Labs:
Laboratory Results
07/14/23
07:31
WBC 17.0 H
Hgb 14.0
Hct 39.8
Plt Count 218
Sodium 135
Potassium 4.6
Chloride 106
Carbon Dioxide 21 L
BUN 28 H
Creatinine 1.1
Glucose 97
Calcium 9.4
Vital Signs:
Vital Signs
Temp Pulse Resp BP Pulse Ox
97.8 F 94 18 115/89 90
07/14/23 07:05 07/14/23 07:05 07/14/23 07:05 07/14/23 07:05 07/14/23 07:05
I&O
07/13/23 07/14/23 07/15/23
06:59 06:59 06:59
Intake Total 1380 / 1380
Balance 1380 / 1380
--- NOTE | 2023-07-14 14:25 | W.DS.TRANS ---
DC Summary - Program Research Specialist
-
Discharge Instructions:
Discharge Diagnosis/Procedures #Bronchospasm/dyspnea/wheezing likely bronchitis
#Atelectasis
#Recent MRSA growing in sputum culture
#Recent sepsis due to community acquired
pneumonia from methicillin-resistant
Staphylococcus aureus
#Chronic Nocturnal Hypoxia
#Constipation
#Hyperlipidemia
#Bipolar Disorder
#Parkinson's Disease
#Hypothyroidism
#Gastroesophageal Reflux Disease
#Benign Prostatic Hyperplasia/Chronic Urinary
Retention
#Chronic nocturnal hypoxia
#Hyperlipidemia
#Bipolar disorder
#Parkinson's disease
#Hypothyroidism
#Gastroesophageal reflux disease
#Benign prostatic hyperplasia
#Chronic urinary retention
#History of deep venous thrombosis/pulmonary
embolism post inferior vena cava filter
placement
Diet Low Cholesterol
Activity As tolerated
Driving Restrictions Not until seen by your Dr
Instructions:
Stand-Alone Forms:
Changes to Home Medications: Yes
Discharge Medications:
DC Medications w/original date entered in [employer]
cholecalciferol (vitamin D3) 25 mcg (1,000 unit) tablet 1,000 units PO DAILY Supplement 03/09/18
cyanocobalamin (vitamin B-12) 1,000 mcg tablet 1,000 mcg PO DAILY Supplement 03/09/18
tamsulosin 0.4 mg capsule 0.8 mg PO DAILY Urinary Issue 03/09/18
gabapentin 100 mg capsule 100 mg PO HS 30 days #30 caps 03/12/18
fluvoxamine 100 mg tablet 100 mg PO DAILY Mental Health/Anxiety 01/19/20
fluvoxamine 50 mg tablet 50 mg PO HS Mental Health/Anxiety 01/19/20
gabapentin 400 mg capsule 400 mg PO TID Neurological Condition 01/19/20
rivaroxaban 20 mg tablet (Xarelto) 20 mg PO QPM Blood Clot Prevention/Tx 01/19/20
atorvastatin 40 mg tablet 40 mg PO HS High Cholesterol 05/26/23
carbidopa 25 mg-levodopa 100 mg tablet 1 tab PO BID Neurological Condition 05/26/23
clonazepam 0.5 mg tablet 0.5 mg PO HS Mental Health/Anxiety 05/26/23
levothyroxine 75 mcg tablet (Synthroid) 75 mcg PO DAILY Thyroid 05/26/23
pantoprazole 40 mg tablet,delayed release 40 mg PO DAILY Gastrointestinal Issue 05/26/23
polyethylene glycol 3350 17 gram oral powder packet 17 grams PO DAILY Constipation 05/26/23
quetiapine 200 mg tablet (Seroquel) 200 mg PO HS Mental Health/Anxiety 05/26/23
quetiapine 25 mg tablet (Seroquel) 50 mg PO HS Mental Health/Anxiety 05/26/23
quetiapine 300 mg tablet (Seroquel) 300 mg PO HS Mental Health/Anxiety 05/26/23
acetaminophen 500 mg tablet (Tylenol Extra Strength) 500 mg PO BIDPRN PRN mild pain 07/12/23
aripiprazole 5 mg tablet 5 mg PO QPM 07/12/23
melatonin 5 mg tablet 10 mg PO HS Sleep 07/12/23
doxycycline hyclate 100 mg capsule 100 mg PO Q12 #6 caps 07/14/23
guaifenesin 600 mg tablet, extended release 12 hr 1,200 mg (2 x 600 mg) PO Q12 #14 tabs 07/14/23
oseltamivir 75 mg capsule 75 mg PO BID #6 caps 07/14/23
prednisone 10 mg tablet See Rx Instructions .Route .COMPLEX #16 tabs 07/14/23
Home Medication Changes
Doxycycline, Oseltamivir, Prednisone Taper and Guaifenesin are all new medications.
Pending Results: Yes
Additional Pending Results:
Final results of sputum culture from hospitalization
Total time spent discharging patient (in min): 40
--- NOTE | 2023-07-14 14:33 | CM ---
Chart reviewed and patient to return to home today, patient has nocturnal oxygen.
Plan; Home today by car.
[2023-07-14 15:05] VITALS: BP 127/92
[2023-07-14] MEDS: ABILIFY 5 MG PO (17:33)
[2023-07-14] MEDS: XARELTO 20 MG PO (17:33)
--- NOTE | 2023-07-17 06:55 | W.DCSUMMARY ---
Discharge Summary
Discharge Data
Date of Admission: 07/12/23
Date of Discharge: 07/14/23
Total time spent discharging patient (in min): 40
-
Pending Results: Yes
Additional Pending Results:
Final results of sputum culture from hospitalization
Hospital Course
73-year-old with past medical history for chronic nocturnal hypoxia, hypothyroidism, depression, anxiety, peripheral vascular disease, mitral prolapse, right lower extremity DVT, ileus presented with cough and short of breath for 5 days. Patient
stated cough with greenish sputum. He had been having shortness of breath even with mild exertion. Patient had been feeling achy and chills all over. Patient was found to be positive for Influenza A. Patient was also started on Doxycycline and
intravenous steroids. Psychiatry was consulted for anxiety and pulmonary was also consulted. Patient received an extra dose of Klonopin with improvement in his anxiety. Psychiatry noted that even though should not be on two different antipsychotics,
he feels that he has been stable and given his numerous psychiatric issues in the past, he would not change this medication presently. Home oxygen assessment was performed and showed that patient did not need home oxygen with harley oxygen saturation
89%, and recovery of oxygen saturation to 94% with rest. Patient was stable for discharge with close outpatient pulmonary follow-up.
Discharge Plan
-
Patient Disposition: Home (Routine Discharge)
Discharge Diagnosis/Procedures: #Bronchospasm/dyspnea/wheezing likely bronchitis
#Atelectasis
#Recent MRSA growing in sputum culture
#Recent sepsis due to community acquired pneumonia from methicillin-resistant Staphylococcus aureus
#Chronic Nocturnal Hypoxia
#Constipation
#Hyperlipidemia
#Bipolar Disorder
#Parkinson's Disease
#Hypothyroidism
#Gastroesophageal Reflux Disease
#Benign Prostatic Hyperplasia/Chronic Urinary Retention
#Chronic nocturnal hypoxia
#Hyperlipidemia
#Bipolar disorder
#Parkinson's disease
#Hypothyroidism
#Gastroesophageal reflux disease
#Benign prostatic hyperplasia
#Chronic urinary retention
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
Condition: Fair
Diet: Low Cholesterol
Activity: As tolerated
Driving Restrictions: Not until seen by your Dr
Stand Alone Forms: Return to Work
Referrals:
Calvin Anna MD [Active] - in one to two weeks
Tenthoff,Vangie Monterroso MD [Family Provider] - in less than 1 week
Additional Discharge Medication Instructions: Doxycycline, Oseltamivir, Prednisone Taper and Guaifenesin are all new medications.
Prescriptions:
New
prednisone 10 mg tablet
See Rx Instructions .ROUTE .COMPLEX Qty: 16 0RF
Rx Instructions:
Starting July 15, 2023: 40 mg x1 day, then 30 mg x2days, then 20 mg x2days, then 10 mg x2days
guaifenesin 600 mg Tablet Extended Release 12hr
1,200 mg PO Q12 Qty: 14 0RF
oseltamivir 75 mg Capsule
75 mg PO BID Qty: 6 0RF
doxycycline hyclate 100 mg Capsule
100 mg PO Q12 Qty: 6 0RF
Continued
cyanocobalamin (vitamin B-12) 1,000 MCG tablet
1,000 mcg PO DAILY
tamsulosin 0.4 MG capsule
0.8 mg PO DAILY
cholecalciferol (vitamin D3) 1,000 UNITS tablet
1,000 units PO DAILY
gabapentin 100 MG capsule
100 mg PO HS 30 Days Qty: 30 0RF
Patient Comments:
in addition to 400 mg hs dose
fluvoxamine 100 mg Tablet
100 mg PO DAILY
fluvoxamine 50 mg Tablet
50 mg PO HS
Xarelto 20 mg Tablet
20 mg PO QPM
gabapentin 400 MG capsule
400 mg PO TID
atorvastatin 40 mg Tablet
40 mg PO HS
pantoprazole 40 mg Tablet,Delayed Release (Dr/Ec)
40 mg PO DAILY
carbidopa-levodopa 25-100 mg Tablet
1 tab PO BID
quetiapine [Seroquel] 25 mg Tablet
50 mg PO HS
Rx Instructions:
take [id number] and 200mg for a total of 550mg
quetiapine [Seroquel] 300 mg Tablet
300 mg PO HS
Rx Instructions:
take with 50mg and 200mg for a total of 550mg
clonazepam 0.5 mg Tablet
0.5 mg PO HS
quetiapine [Seroquel] 200 mg Tablet
200 mg PO HS
Rx Instructions:
take with 300mg and 50mg for a total of 550mg
levothyroxine [Synthroid] 75 mcg Tablet
75 mcg PO DAILY
polyethylene glycol 3350 17 GRAMS powder in packet
17 grams PO DAILY
acetaminophen [Tylenol Extra Strength] 500 mg Tablet
500 mg PO BIDPRN PRN (Reason: mild pain)
aripiprazole 5 mg tablet
5 mg PO QPM
melatonin 5 mg Tablet
10 mg PO HS
Discharge Orders:
Discharge Patient (As Directed); Ordered 07/14/23
Ordered By: Johnson Genao
Discharge Date and Time
Discharge Date/Time: 07/14/23 18:53
Print Language: ITALIAN
== END 2023-07-14 18:53 | disposition home or self-care (01) | DRG 202 ==
LOC: 4 WEST ACU 17:42
PROVIDERS: Registered Nurse; ADMITTING PHYSICIAN Hospitalist; CONSULT PHYSICIAN Internal Medicine Critical Care Medicine; CONSULT PHYSICIAN Psychiatry & Neurology Psychiatry; EMERGENCY PHYSICIAN Emergency Medicine; FAMILY PHYSICIAN Family Medicine
DX: J20.9 Acute bronchitis, unspecified (principal); J96.01 Acute respiratory failure with hypoxia; J98.11 Atelectasis; K59.00 Constipation, unspecified; G20.A1 Parkinson's disease without dyskinesia, without mention of fluctuations; F31.9 Bipolar disorder, unspecified; E03.9 Hypothyroidism, unspecified; K21.9 Gastro-esophageal reflux disease without esophagitis; N40.1 Benign prostatic hyperplasia with lower urinary tract symptoms; Z79.01 Long term (current) use of anticoagulants; J10.1 Influenza due to other identified influenza virus with other respiratory manifestations; F41.9 Anxiety disorder, unspecified; E66.9 Obesity, unspecified; Z68.32 Body mass index [BMI] 32.0-32.9, adult; E78.00 Pure hypercholesterolemia, unspecified; Z11.52 Encounter for screening for COVID-19
CPT/HCPCS: 71046; 80048; 83735; 85025; 85027; 87070; 87205; 87502; 87811; 93005; 94640; 96374; 97161; 99285

== ENCOUNTER 2024-09-30 12:53 | Emergency (ER) | payer OTHER, SELFPAY ==
[2024-09-30 12:54] VITALS: BP 119/80
[2024-09-30 13:46] LABS: % Basophils 0.2 % (0-2); % Eosinophils 3.4 % (0-6); % Immature Granulocytes 0.3 % (0-0.5); % Lymphocytes 15.3 % (20.5-51.1); % Monocytes 7.1 % (1.7-9.3); % Neutrophils 73.7 % (42.2-75.2); Absolute Eosinophils 0.3 10^3/uL (0-0.7); Absolute Lymphocytes 1.4 10^3/uL (1.2-3.4); Absolute Monocytes 0.7 10^3/uL (0.1-0.6); Absolute Neutrophils 6.7 10^3/uL (1.4-6.5); Hemoglobin 14.8 g/dL (13.0-18.0); Mean Corp Hgb Conc. 33.6 g/dL (33.0-37.0); Mean Corpuscular Hgb 31.2 pg (27.0-31.0); Mean Corpuscular Volume 92.8 fL (80.0-94.0); Mean Platelet Volume 9.4 fL (7.4-10.4); Nucleated Red Blood Cells % 0 % (-); Platelet Count 199 10^3/uL (130-400); Red Blood Cell Count 4.74 10^6/uL (4.70-6.10); Red Cell Dist. Width 14.7 % (11.5-14.5); White Blood Cell Count 9.1 10^3/uL (4.8-10.8)
[2024-09-30 14:02] LABS: ALT (SGPT) 14 U/L (0-50); AST (SGOT) 18 U/L (17-59); Albumin 4.4 g/dl (3.5-5.0); Alkaline Phosphatase 70 U/L (38-126); Blood Urea Nitrogen 19 mg/dl (9-20); Calcium 9.7 mg/dl (8.4-10.2); Carbon Dioxide 27 mmol/L (22-30); Chloride 106 mmol/L (98-107); Glucose 94 mg/dl (70-99); Lipase 50 U/L (23-300); Potassium 4.8 mmol/L (3.5-5.1); Sodium 142 mmol/L (135-145); Total Bilirubin 0.7 mg/dl (0.2-1.3); Total Protein 6.6 g/dl (6.3-8.2); eGFR 52.74
--- NOTE | 2024-09-30 14:07 | EDRN ---
Patient states he went out to eat @ [facility] on 09/27. Symptoms started after he ate there. Patient took immodium and diarrhea stopped.
--- NOTE | 2024-09-30 14:36 | ED.GENMED ---
History of Present Illness
General
Chief Complaint: Abdominal Pain
Source: patient
Time Seen by Provider: 09/30/24 14:08
History of Present Illness
History of Present Illness:
34-year-old male presents emergent complaint abdominal pain. Pain has been present for a few days. He developed diarrhea over the past couple days. No fever or chills. He had some nausea but has not vomited. Patient denies any dysuria or
frequency. Patient had an exploratory laparotomy in the past for possible bowel obstruction but no obstruction was found. It was determined he had an ileus. Patient admits to history of bipolar disease and depression. He has been on psychiatric
medications for years. Patient took Imodium for his diarrhea earlier today and has not had any diarrhea since then. He is denying any blood or mucus in his stool.
Past History
Past History
ED Past Medical History: Hypothyroidism, Psychiatric (Depression, chronic anxiety) and Other (History of peripheral vascular disease, mitral valve prolapse, DVT to the right leg, ileus, abdominal pain, urinary tract infection, cellulitis)
ED Past Surgical History: Other (vascular surgery to the right leg for poor circulation, cervical spine fusion, exploratory surgery of the abdomen for pain and abdominal enlargement, Green field filter)
Patient has exhibited threatening behavior?: No
Social History
Tobacco: Non-smoker
Alcohol: None
Personal: Single
Living: other (nursing home)
Employment: Not employed
Family History
Family History: Other (Noncontributory)
Phy Exam
Physical Exam
Physical Exam:
General: Awake, Alert, Oriented X3. No acute distress.
Vitals: unremarkable
Head: Atraumatic
Eyes: Pupils equal, EOMI
Throat: Airway intact, no exudates
Neck: Trachea midline
Lungs: Clear and equal b/l
Heart: Regular rate, no murmurs
Abd: Soft, protuberant but nontender, No pulsatile mass
Neuro: Nonfocal
Skin: Warm, dry, no rash
Extremities: pulses equal b/l, no edema
Course
Orders/Labs/Results
Orders:
Orders
09/30/24 13:17
IV Insert/Care/Rem.- Treatment PRN
09/30/24 13:24
Complete Blood Count/With Diff Urgent
Comprehensive Metabolic Panel Urgent
Lipase Urgent
09/30/24 14:34
CT Abd/Pel (IV only)-DH only Urgent
Comment:
Reason For Exam: abdominal pain
Abnormal Lab Results
09/30/24
13:24
MCH 31.2 H pg
(27.0-31.0)
RDW 14.7 H %
(11.5-14.5)
Absolute Neuts (auto) 6.7 H 10^3/uL
(1.4-6.5)
Absolute Monos (auto) 0.7 H 10^3/uL
(0.1-0.6)
Lymphocytes % 15.3 L %
(20.5-51.1)
Creatinine 1.4 H mg/dL
(0.7-1.3)
09/30/24 13:24
09/30/24 13:24
Vital Signs
Initial and Last Documented VS:
Initial Vital Signs
Temp Pulse Resp BP Pulse Ox
97.4 F 86 20 119/80 95
09/30/24 12:54 09/30/24 12:54 09/30/24 12:54 09/30/24 12:54 09/30/24 12:54
Last Documented Vital Signs
Temp Pulse Resp BP Pulse Ox
97.4 F 73 18 132/98 96
09/30/24 12:54 09/30/24 15:23 09/30/24 15:23 09/30/24 15:23 09/30/24 15:23
MDM/Problems Addressed
Differential Diagnosis Includes:
Obstruction, ileus, gastroenteritis, diverticulitis
MDM/Problems Addressed:
Patient presents with abdominal discomfort, diarrhea. CT shows no acute inflammatory process possible dysmotility. Patient feeling reasonably well on reevaluation. Stable for discharge and outpatient follow-up.
*Radiology
Radiology exam reviewed: radiology read reviewed
*Pulse Oximetry
SaO2: 95
Oxygen Mode of Delivery: Room air
Patient hypoxic: no
*Critical Care Note
Total Time (30-74mins, 75-104mins- exclusive of procedures): Not Applicable
ED Attending Note
-
Portions of this chart may have been created with voice recognition software.� Occasional wrong word or��sound alike� substitutions may have occurred due to the inherent limitations of voice recognition software.
Discharge Plan
Departure
Patient Disposition: Home (Routine Discharge)
Date of Disposition: 09/30/24
Time of Disposition: 16:22
Patient with high blood pressure during this ER visit?: No
Condition: Good
Discharge Problem:
Abdominal pain, Gastroenteritis
Instructions: Viral gastroenteritis in adults, Abdominal Pain
Prescriptions:
No Action
cyanocobalamin (vitamin B-12) 1,000 MCG tablet
1,000 mcg PO DAILY
tamsulosin 0.4 MG capsule
0.8 mg PO DAILY
cholecalciferol (vitamin D3) 1,000 UNITS tablet
1,000 units PO DAILY
gabapentin 100 MG capsule
100 mg PO HS 30 Days Qty: 30 0RF
Patient Comments:
in addition to 400 mg hs dose
fluvoxamine 100 mg Tablet
100 mg PO DAILY
fluvoxamine 50 mg Tablet
50 mg PO HS
Xarelto 20 mg Tablet
20 mg PO QPM
gabapentin 400 MG capsule
400 mg PO TID
atorvastatin 40 mg Tablet
40 mg PO HS
pantoprazole 40 mg Tablet,Delayed Release (Dr/Ec)
40 mg PO DAILY
carbidopa-levodopa 25-100 mg Tablet
1 tab PO BID
quetiapine [Seroquel] 25 mg Tablet
50 mg PO HS
Rx Instructions:
take [id number] and 200mg for a total of 550mg
quetiapine [Seroquel] 300 mg Tablet
300 mg PO HS
Rx Instructions:
take with 50mg and 200mg for a total of 550mg
clonazepam 0.5 mg Tablet
0.5 mg PO HS
quetiapine [Seroquel] 200 mg Tablet
200 mg PO HS
Rx Instructions:
take with 300mg and 50mg for a total of 550mg
levothyroxine [Synthroid] 75 mcg Tablet
75 mcg PO DAILY
polyethylene glycol 3350 17 GRAMS powder in packet
17 grams PO DAILY
acetaminophen [Tylenol Extra Strength] 500 mg Tablet
500 mg PO BIDPRN PRN (Reason: mild pain)
aripiprazole 5 mg tablet
5 mg PO QPM
melatonin 5 mg Tablet
10 mg PO HS
prednisone 10 mg tablet
See Rx Instructions .ROUTE .COMPLEX Qty: 16 0RF
Rx Instructions:
Starting July 15, 2023: 40 mg x1 day, then 30 mg x2days, then 20 mg x2days, then 10 mg x2days
guaifenesin 600 mg Tablet Extended Release 12hr
1,200 mg PO Q12 Qty: 14 0RF
oseltamivir 75 mg Capsule
75 mg PO BID Qty: 6 0RF
doxycycline hyclate 100 mg Capsule
100 mg PO Q12 Qty: 6 0RF
Referrals:
Vangie Patricia MD [Family Provider, Family Practice]
Interventions
Interventions:
*Risk Screen - Suicide Last Done: 09/30/24 14:12
*General Assessment Last Done: 09/30/24 12:54
*Neglect/Abuse Screening Last Done: 09/30/24 14:12
*ED- Fall Risk Assessment Last Done: 09/30/24 14:12
*ED COVID-19 Vaccine History Last Done: 09/30/24 14:12
*Nursing Disposition Last Done: 09/30/24 17:00
[id number] Assessment Last Done: 09/30/24 14:12
Discharge Date and Time
Discharge Date/Time: 09/30/24 17:00
Print Language: MALIAN
[2024-09-30 15:23] VITALS: BP 132/98
== END 2024-09-30 17:00 | disposition home or self-care (01) ==
LOC: EMR 12:53
PROVIDERS: EMERGENCY PHYSICIAN Emergency Medicine; FAMILY PHYSICIAN Family Medicine
DX: K52.9 Noninfective gastroenteritis and colitis, unspecified (principal); R10.9 Unspecified abdominal pain; E03.9 Hypothyroidism, unspecified; I34.1 Nonrheumatic mitral (valve) prolapse; I73.9 Peripheral vascular disease, unspecified; Z98.1 Arthrodesis status; Z86.718 Personal history of other venous thrombosis and embolism
CPT/HCPCS: 99284; 74177; 80053; 83690; 85025; Q9967